=== PATIENT | female | born 1970 | race Caucasian/White ===

== ENCOUNTER 2018-02-05 10:54 | Inpatient (IN) ==
[2018-02-05] MEDS ORDERED: MethylPREDNISolone Sod Succinate Inj 125 MG/2 ML Vial IV.PUSH ONE (11:25)
[2018-02-05 12:18] LABS: Baso % (Auto) 0.1 % (0.0-2.0); Hematocrit 39.5 % (35.0-46.0); Hemoglobin 13.6 gm/dL (11.6-15.3); Lymph # (Auto) 0.5 th/mm3 (1.0-4.8); Mean Corpuscular HGB Conc 34.4 % (32.0-36.0); Mean Corpuscular Volume 87.2 fL (80.0-100.0); Mean Platelet Volume 8.3 fL (7.0-11.0); Mono # (Auto) 0.3 th/mm3 (0.0-0.9); Mono % (Auto) 5.1 % (0.0-8.0); Neut # (Auto) 4.5 th/mm3 (1.8-7.7); Neut % (Auto) 85.8 % (16.0-70.0); Platelet Count 119 th/mm3 (150-450); Red Blood Count 4.53 mil/mm3 (4.00-5.30); Red Cell Distribution Width 12.7 % (11.6-17.2); White Blood Count 5.2 th/mm3 (4.0-11.0)
--- NOTE | 2018-02-05 12:18 | ED ---
HPI General Chief Complaint: Shortness of Breath/Dyspnea Stated Complaint: Sob Time Seen by Provider: 02/05/18 11:24 Source: patient Mode of arrival: ambulatory Limitations: no limitations History of Present Illness Patient is a 47-year-old female presenting to the [facility] department for evaluation of shortness of breath. Patient states it started on Sunday, at that time she went to [facility] in [place] and was given a Z-Huseyin and steroids. She has been using her Ventolin inhaler without any improvement. She reports a dry cough, wheezing and gets significantly short of breath with any activity. Patient states she had fevers on Sunday and Sunday, she states they were over 100 degrees. She also reports a decreased appetite. Patient denies any nausea, vomiting, diarrhea, abdominal pain or chest pain. She does have a history of asthma, she recently started smoking again. Past medical history is significant for colon cancer, this is in remission. She is not currently on any radiation or chemotherapy. Symptom onset was gradual, symptoms are significant. Symptoms are exacerbated with any activity. Patient is from [place], she does not have a primary care provider in [facility]. She states she used to see a broadcast journalist in [place]. Patient denies any recent long travel, history of blood clots or hormone therapy. MD Complaint: Reports shortness of breath and cough Onset (ago): day(s) Context: Reports recent illness and occurred during exertion Severity: moderate Consistency/Duration: progressively worsening Relieving factors: nothing Exacerbating factors: exertion, movement, coughing and talking Known history of: Reports asthma Associated symptoms: Reports cough, wheezing and chest congestion Treatment prior to arrival: Reports bronchodilator Related Data Home oxygen amount: none Home Medications Medication Instructions Recorded Confirmed albuterol sulfate [Ventolin HFA] 2 puff INHALATION Q4-6H PRN 02/05/18 02/05/18 Previous Rx's Medication Instructions Recorded budesonide-formoterol [Symbicort] 2 puff INHALATION BID #1 inh 02/11/18 hydroxyzine HCl 50 mg PO Q8H PRN #60 tab 02/11/18 levofloxacin 750 mg PO DAILY #9 tab 02/11/18 prednisone See Label Instructions .ROUTE 02/11/18 .COMPLEX #30 tab Allergies Allergy/AdvReac Type Severity Reaction Status Date / Time No Known Allergies Allergy Verified 02/05/18 11:24 Review of Systems ROS: all other systems reviewed are negative PMFSH Medical History Medical History Asthma (Acute) Colon cancer (Acute) Surgical History Surgical History History of colostomy reversal (Acute) Hx of colectomy (Acute) Social History Social History Substance History: No History of Abuse Second Hand Smoke Exposure: Yes Smoking Status: Current some day smoker Tobacco Type: Cigarettes How Often Do You Have a Drink Containing Alcohol: Monthly or less Recent Travel in [facility] within the Last 8 Weeks: No Recent Out of Country Travel within the Last 8 Weeks: No Immunization History Tetanus Immunization: Unsure Exam Narrative Exam Narrative: GENERAL: Well-developed, well-nourished, comfortable appearing female, in no acute distress. SKIN: Focused skin assessment warm/dry. HEAD: Atraumatic. Normocephalic. EYES: Pupils equal and round. No scleral icterus. No injection or drainage. ENT: No nasal bleeding or discharge. Mucous membranes pink and moist. NECK: Trachea midline. No JVD. CARDIOVASCULAR: Tachycardic. No murmur appreciated. RESPIRATORY: Tachypneic, expiratory wheezes throughout with diminished lung sounds in bases. GASTROINTESTINAL: Abdomen soft, non-tender, nondistended. Hepatic and splenic margins not palpable. MUSCULOSKELETAL: No obvious deformities. No clubbing. No cyanosis. No edema. NEUROLOGICAL: Awake and alert. No obvious cranial nerve deficits. Motor grossly within normal limits. Normal speech. PSYCHIATRIC: Appropriate mood and affect; insight and judgment normal. Course Initial Documented Vital Signs Temperature 97.4 F L 02/05/18 11:00 Pulse Rate 116 H 02/05/18 11:00 Respiratory Rate 32 H 02/05/18 11:00 Blood Pressure 173/90 H 02/05/18 11:00 Pulse Oximetry 93 L 02/05/18 11:00 Last Documented Vital Signs Temperature 98.0 F 02/11/18 16:00 Pulse Rate 86 02/11/18 16:00 Respiratory Rate 18 02/11/18 16:00 Blood Pressure 130/71 02/11/18 16:00 Pulse Oximetry 93 L 02/11/18 16:00 Medical Decision Making ANTONY Attestation ANTONY supervised visit: Yes Attestation: Dr. Ingris Samuels, have reviewed the advance practice practitioner' s documentation and am in agreement, met with the patient face to face, made the diagnosis, and the medical decision making was done by me. The patient was initially evaluated by [maricel garcia]. Please see their complete history and physical MDM Narrative Medical decision making narrative: Patient is a 47-year-old female presenting with increasing shortness of breath for 1 week. Patient is tachycardic and hypoxic on arrival with an O2 sat at 90%. Patient was placed on O2 at 2 L. Labs and imaging ordered and pending as well as duo nebs, budesonide and Solu- Medrol. Chest x-ray showed possible fractured central line, recommended clinical correlation. Patient was negative for influenza. CBC with neutrophil count of 85.8, platelets 119. CT of the chest was obtained and showed scattered patchy infiltrates suggestive of inflammatory/infectious process most prominent in the right upper lobe posteriorly also has mediastinal lymph node measuring 15 mm, subcarinal lymph node measuring 2.3 cm as well as mild bullous changes. Patient was started on IV Levaquin and she just completed a course of azithromycin. She was given guaifenesin for symptom management. Patient continues to require oxygen to keep O2 sats greater than 92%. She came back from radiology with an O2 sat of 89% on room air. Discussed with Dr. Abdifatah London who accepted admission, admit orders placed. Medical Screen Exam Complete: Yes Emergency Medical Condition: Yes Differential Diagnosis Differential Diagnosis: Pneumonia versus asthma exacerbation versus metabolic abnormality versus cardiac arrhythmia versus less likely pulmonary embolism Lab Data Lab results reviewed: Yes I reviewed the patient's lab results. Result diagrams: 02/09/18 05:09 02/10/18 16:05 Lab Results 02/05/18 02/05/18 02/05/18 Range/Units 11:55 11:55 11:55 WBC 5.2 (4.0-11.0) th/mm3 RBC 4.53 (4.00-5.30) mil/mm3 Hgb 13.6 (11.6-15.3) gm/dL Hct 39.5 (35.0-46.0) % MCV 87.2 (80.0-100.0) fL MCH 30.0 (27.0-34.0) pg MCHC 34.4 (32.0-36.0) % RDW 12.7 (11.6-17.2) % Plt Count 119 L (150-450) th/mm3 MPV 8.3 (7.0-11.0) fL Neut % (Auto) 85.8 H (16.0-70.0) % Lymph % (Auto) 9.0 (9.0-44.0) % Coos % (Auto) 5.1 (0.0-8.0) % Eos % (Auto) 0.0 (0.0-4.0) % Baso % (Auto) 0.1 (0.0-2.0) % Neut # (Auto) 4.5 (1.8-7.7) th/mm3 Lymph # (Auto) 0.5 L (1.0-4.8) th/mm3 Coos # (Auto) 0.3 (0.0-0.9) th/mm3 Eos # (Auto) 0.0 (0.0-0.4) th/mm3 Baso # (Auto) 0.0 (0.0-0.2) th/mm3 WBC Differential . Differential Comment Auto diff final PT 10.0 (9.8-11.6) sec INR 1.0 Ratio APTT 29.2 (23.4-31.7) sec Sodium 137 (136-145) meq/L Potassium 3.8 (3.5-5.1) meq/L Chloride 103 (98-107) meq/L Carbon Dioxide 26.3 (21.0-32.0) meq/L Anion Gap 8 (5-15) meq/L BUN 9 (7-18) mg/dL Creatinine 0.61 (0.50-1.00) mg/dL Estimated GFR Greater than 89 (>89) mL/min Random Glucose 118 H (74-106) mg/dL Lactic Acid (0.4-2.0) mmol/L Calcium 7.9 L (8.5-10.1) mg/dL Magnesium 2.3 (1.5-2.5) mg/dL Total Bilirubin 0.4 (0.2-1.0) mg/dL AST 21 (15-37) U/L ALT 41 (10-53) U/L Alkaline Phosphatase 107 (45-117) U/L Total Creatine Kinase 49 (26-192) U/L Troponin I Less than 0.02 L (0.02-0.05) ng/mL Total Protein 6.7 (6.4-8.2) g/dL Albumin 3.1 L (3.4-5.0) g/dL Urine Color (Yellw/Straw) Urine Clarity (Clear) Urine pH (5.0-8.5) Ur Specific [place] (1.002-1.035) Urine Protein (Neg-Trace) mg/dL Urine Glucose (UA) (Negative) mg/dL Urine Ketones (Negative) mg/dL Urine Occult Blood (Negative) Urine Nitrate (Negative) Urine Bilirubin (Negative) Urine Urobilinogen (Less than 2) mg/dL Ur Leukocyte Esterase (Negative) Urine WBC (0-5) /hpf Ur Squamous Epith Cells (0-5) /hpf Urine Mucus (Occasional) /lpf Micro UA Comment Ur Microscopic Review Urine Culture Comments 02/05/18 02/06/18 02/06/18 Range/Units 11:55 05:47 05:47 WBC 4.7 (4.0-11.0) th/mm3 RBC 4.28 (4.00-5.30) mil/mm3 Hgb 13.0 (11.6-15.3) gm/dL Hct 37.7 (35.0-46.0) % MCV 87.9 (80.0-100.0) fL MCH 30.4 (27.0-34.0) pg MCHC 34.6 (32.0-36.0) % RDW 12.8 (11.6-17.2) % Plt Count 143 L (150-450) th/mm3 MPV 8.3 (7.0-11.0) fL Neut % (Auto) 78.1 H (16.0-70.0) % Lymph % (Auto) 15.2 (9.0-44.0) % Coos % (Auto) 6.5 (0.0-8.0) % Eos % (Auto) 0.0 (0.0-4.0) % Baso % (Auto) 0.2 (0.0-2.0) % Neut # (Auto) 3.7 (1.8-7.7) th/mm3 Lymph # (Auto) 0.7 L (1.0-4.8) th/mm3 Coos # (Auto) 0.3 (0.0-0.9) th/mm3 Eos # (Auto) 0.0 (0.0-0.4) th/mm3 Baso # (Auto) 0.0 (0.0-0.2) th/mm3 WBC Differential . Differential Comment Auto diff final PT (9.8-11.6) sec INR Ratio APTT (23.4-31.7) sec Sodium 135 L (136-145) meq/L Potassium 3.7 (3.5-5.1) meq/L Chloride 102 (98-107) meq/L Carbon Dioxide 25.5 (21.0-32.0) meq/L Anion Gap 8 (5-15) meq/L BUN 14 (7-18) mg/dL Creatinine 0.71 (0.50-1.00) mg/dL Estimated GFR 89 (>89) mL/min Random Glucose 172 H (74-106) mg/dL Lactic Acid 0.8 (0.4-2.0) mmol/L Calcium 8.4 L (8.5-10.1) mg/dL Magnesium (1.5-2.5) mg/dL Total Bilirubin (0.2-1.0) mg/dL AST (15-37) U/L ALT (10-53) U/L Alkaline Phosphatase (45-117) U/L Total Creatine Kinase (26-192) U/L Troponin I (0.02-0.05) ng/mL Total Protein (6.4-8.2) g/dL Albumin (3.4-5.0) g/dL Urine Color (Yellw/Straw) Urine Clarity (Clear) Urine pH (5.0-8.5) Ur Specific [place] (1.002-1.035) Urine Protein (Neg-Trace) mg/dL Urine Glucose (UA) (Negative) mg/dL Urine Ketones (Negative) mg/dL Urine Occult Blood (Negative) Urine Nitrate (Negative) Urine Bilirubin (Negative) Urine Urobilinogen (Less than 2) mg/dL Ur Leukocyte Esterase (Negative) Urine WBC (0-5) /hpf Ur Squamous Epith Cells (0-5) /hpf Urine Mucus (Occasional) /lpf Micro UA Comment Ur Microscopic Review Urine Culture Comments 02/06/18 02/09/18 02/09/18 Range/Units 14:05 05:09 05:09 WBC 5.1 (4.0-11.0) th/mm3 RBC 4.27 (4.00-5.30) mil/mm3 Hgb 13.0 (11.6-15.3) gm/dL Hct 36.5 (35.0-46.0) % MCV 85.6 (80.0-100.0) fL MCH 30.6 (27.0-34.0) pg MCHC 35.7 (32.0-36.0) % RDW 12.6 (11.6-17.2) % Plt Count 207 D (150-450) th/mm3 MPV 7.7 (7.0-11.0) fL Neut % (Auto) (16.0-70.0) % Lymph % (Auto) (9.0-44.0) % Coos % (Auto) (0.0-8.0) % Eos % (Auto) (0.0-4.0) % Baso % (Auto) (0.0-2.0) % Neut # (Auto) (1.8-7.7) th/mm3 Lymph # (Auto) (1.0-4.8) th/mm3 Coos # (Auto) (0.0-0.9) th/mm3 Eos # (Auto) (0.0-0.4) th/mm3 Baso # (Auto) (0.0-0.2) th/mm3 WBC Differential Differential Comment PT (9.8-11.6) sec INR Ratio APTT (23.4-31.7) sec Sodium 140 (136-145) meq/L Potassium 3.3 L (3.5-5.1) meq/L Chloride 104 (98-107) meq/L Carbon Dioxide 28.7 (21.0-32.0) meq/L Anion Gap 7 (5-15) meq/L BUN 13 (7-18) mg/dL Creatinine 0.63 (0.50-1.00) mg/dL Estimated GFR Greater than 89 (>89) mL/min Random Glucose 134 H (74-106) mg/dL Lactic Acid (0.4-2.0) mmol/L Calcium 7.6 L (8.5-10.1) mg/dL Magnesium (1.5-2.5) mg/dL Total Bilirubin (0.2-1.0) mg/dL AST (15-37) U/L ALT (10-53) U/L Alkaline Phosphatase (45-117) U/L Total Creatine Kinase (26-192) U/L Troponin I (0.02-0.05) ng/mL Total Protein (6.4-8.2) g/dL Albumin (3.4-5.0) g/dL Urine Color Yellow (Yellw/Straw) Urine Clarity Hazy H (Clear) Urine pH 7.0 (5.0-8.5) Ur Specific [place] 1.029 (1.002-1.035) Urine Protein 100 H (Neg-Trace) mg/dL Urine Glucose (UA) Negative (Negative) mg/dL Urine Ketones Negative (Negative) mg/dL Urine Occult Blood Negative (Negative) Urine Nitrate Negative (Negative) Urine Bilirubin Negative (Negative) Urine Urobilinogen Less than 2 (Less than 2) mg/dL Ur Leukocyte Esterase Negative (Negative) Urine WBC 1 (0-5) /hpf Ur Squamous Epith Cells 15 (0-5) /hpf Urine Mucus Few H (Occasional) /lpf Micro UA Comment Culture not ind Ur Microscopic Review Not Reportable Urine Culture Comments Culture not ind 02/10/18 Range/Units 16:05 WBC (4.0-11.0) th/mm3 RBC (4.00-5.30) mil/mm3 Hgb (11.6-15.3) gm/dL Hct (35.0-46.0) % MCV (80.0-100.0) fL MCH (27.0-34.0) pg MCHC (32.0-36.0) % RDW (11.6-17.2) % Plt Count (150-450) th/mm3 MPV (7.0-11.0) fL Neut % (Auto) (16.0-70.0) % Lymph % (Auto) (9.0-44.0) % Coos % (Auto) (0.0-8.0) % Eos % (Auto) (0.0-4.0) % Baso % (Auto) (0.0-2.0) % Neut # (Auto) (1.8-7.7) th/mm3 Lymph # (Auto) (1.0-4.8) th/mm3 Co[place] # (Auto) (0.0-0.9) th/mm3 Eos # (Auto) (0.0-0.4) th/mm3 Baso # (Auto) (0.0-0.2) th/mm3 WBC Differential Differential Comment PT (9.8-11.6) sec INR Ratio APTT (23.4-31.7) sec Sodium 139 (136-145) meq/L Potassium 4.1 D (3.5-5.1) meq/L Chloride 103 (98-107) meq/L Carbon Dioxide 27.0 (21.0-32.0) meq/L Anion Gap 9 (5-15) meq/L BUN 16 (7-18) mg/dL Creatinine 0.83 (0.50-1.00) mg/dL Estimated GFR 74 L (>89) mL/min Random Glucose 134 H (74-106) mg/dL Lactic Acid (0.4-2.0) mmol/L Calcium 7.9 L (8.5-10.1) mg/dL Magnesium (1.5-2.5) mg/dL Total Bilirubin 0.4 (0.2-1.0) mg/dL AST 11 L (15-37) U/L ALT 20 (10-53) U/L Alkaline Phosphatase 74 (45-117) U/L Total Creatine Kinase (26-192) U/L Troponin I (0.02-0.05) ng/mL Total Protein 6.1 L D (6.4-8.2) g/dL Albumin 3.0 L (3.4-5.0) g/dL Urine Color (Yellw/Straw) Urine Clarity (Clear) Urine pH (5.0-8.5) Ur Specific [place] (1.002-1.035) Urine Protein (Neg-Trace) mg/dL Urine Glucose (UA) (Negative) mg/dL Urine Ketones (Negative) mg/dL Urine Occult Blood (Negative) Urine Nitrate (Negative) Urine Bilirubin (Negative) Urine Urobilinogen (Less than 2) mg/dL Ur Leukocyte Esterase (Negative) Urine WBC (0-5) /hpf Ur Squamous Epith Cells (0-5) /hpf Urine Mucus (Occasional) /lpf Micro UA Comment Ur Microscopic Review Urine Culture Comments Imaging Data Radiologist's impression: Chest X-Ray 02/05/18 11:25 CONCLUSION: Tubular structure overlying the brachiocephalic vein and superior vena cava measuring approximately 6-7 cm which may represent a fractured central line. Clinical correlation is recommended. Unenhanced CT of the chest may be helpful for further evaluation of this possible foreign body. Chest CT 02/05/18 12:35 CONCLUSION: 1. Scattered patchy infiltrates are noted bilaterally and are nonspecific but suggestive of infectious/inflammatory process. Most prominent areas of nodular patchiness is noted within the right upper lobe posteriorly measuring 17 mm. Peripheral nodular patchy infiltrates are also noted within the right lower lobe. 2. Mildly prominent precarinal mediastinal lymph node measuring 15 mm as well as an enlarged subcarinal mediastinal lymph node measuring 2.3 cm. These are nonspecific. 3. Scattered underlying mild bullous emphysematous changes are noted bilaterally. 4. Mild hepatosplenomegaly. 5. Mild degenerative changes throughout the thoracic spine. WBC Scan Nuclear Medicine 02/08/18 00:00 CONCLUSION: Negative white blood cell scan. Chest X-Ray 02/09/18 00:00 CONCLUSION: No acute cardiac pulmonary process. Foreign body seen over the superior mediastinum. Discharge Plan Discharge Disposition Patient Disposition: ED Admit(ED Internal Use Only) Discharge Condition Condition: Stable Discharge Order Discharge Orders: Discharge Order (Routine); Ordered 02/11/18 Ordered By: Franck Phelps ED Use Only Admit Order (Routine); Ordered 02/05/18 Ordered By: Maricel Garcia Discharge Details Discharge Comment: DC once cleared and abx selected by ID Diagnosis: Community acquired pneumonia Physicians Team ED Provider: Ethan Amado ED Midlevel Provider: Maricel Garcia Primary Care Provider: Primary Care Jeane Berry Attending Provider: Franck Phelps Other Providers: Radha Simons Status ED Status: Left Department Discharge Information Discharge Date/Time: 02/05/18 16:45
[2018-02-05 12:28] LABS: Activated Partial Thrombo Time 29.2 sec (23.4-31.7)
--- NOTE | 2018-02-05 12:30 | XR ---
EXAM DATE: 02/05/2018 12:24 PM EST AGE/SEX: 47 years / Female INDICATIONS: Short of breath. Patient also complains of chest pain. CLINICAL DATA: This is the patient's initial encounter. Patient reports that signs and symptoms have been present for 1 week and indicates a pain score of 5/10. MEDICAL/SURGICAL HISTORY: . Pt. states she was given medicine recently for bronchitis. None. COMPARISON: No prior exams available for comparison. FINDINGS: There is a tubular structure overlying the brachiocephalic vein and superior vena cava measuring appr oximately 6-7 cm which may represent a fractured central line. Clinical correlation is recommended. U nenhanced CT of the chest may be helpful for further evaluation of this possible foreign body. The he art is normal. The pulmonary vascular pattern is normal. The lungs are clear. Chronic deformity of th e right proximal humerus is noted likely related to old trauma. CONCLUSION: Tubular structure overlying the brachiocephalic vein and superior vena cava measuring approximately 6 -7 cm which may represent a fractured central line. Clinical correlation is recommended. Unenhanced C T of the chest may be helpful for further evaluation of this possible foreign body. Electronically signed by: Guilherme Salas MD Board Certified Radiologist 02/05/2018 12:28 PM EST
[2018-02-05 12:41] LABS: Alanine Aminotransferase 41 U/L (10-53); Albumin 3.1 g/dL (3.4-5.0); Anion Gap 8 meq/L (5-15); Aspartate Aminotransferase 21 U/L (15-37); Blood Urea Nitrogen 9 mg/dL (7-18); Calcium 7.9 mg/dL (8.5-10.1); Carbon Dioxide 26.3 meq/L (21.0-32.0); Chloride 103 meq/L (98-107); Glomerular Filtration Rate Greater Than 89 mL/min (>89); Glucose,Random 118 mg/dL (74-106); Magnesium 2.3 mg/dL (1.5-2.5); Potassium 3.8 meq/L (3.5-5.1); Sodium 137 meq/L (136-145)
[2018-02-05 12:42] LABS: Alkaline Phosphatase 107 U/L (45-117); Total Protein 6.7 g/dL (6.4-8.2)
[2018-02-05 12:44] LABS: Creatine Kinase 49 U/L (26-192)
[2018-02-05] MEDS ORDERED: guaiFENesin/Codeine Syrup 200 MG/20 MG 10 ML UDC PO ONE (13:51)
--- NOTE | 2018-02-05 14:06 | CT ---
EXAM DATE: 02/05/2018 1:50 PM EST AGE/SEX: 47 years / Female INDICATIONS: Patient complains of dyspnea. Completed steroids and antibiotics with no relief CLINICAL DATA: This is the patient's initial encounter. Patient reports that signs and symptoms have been present for 1 week and indicates a pain score of 0/10. MEDICAL/SURGICAL HISTORY: Asthma. Carcinoma, colon. None. RADIATION DOSE: 9.4 CTDI (mGy) COMPARISON: No prior exams available for comparison. TECHNIQUE: Multiple contiguous axial images were obtained through the chest without contrast. Image s were obtained in suspended respiration using multiple row detector helical technique. Using automa jyotsna exposure control and adjustment of the mA and/or kV according to patient size, radiation dose was kept as low as reasonably achievable to obtain optimal diagnostic quality images. DICOM format imag e data is available electronically for review and comparison. FINDINGS: Lungs: Scattered patchy infiltrates are noted bilaterally and are nonspecific but suggestive of infe ctious/inflammatory process. Most prominent areas of nodular patchiness is noted within the right upp er lobe posteriorly measuring 17 mm. Peripheral nodular patchy infiltrates are also noted within the right lower lobe. Scattered underlying mild bullous emphysematous changes are noted bilaterally. Mediastinum: There is good visualization of the great vessels of the middle mediastinum. There is a mildly prominent precarinal mediastinal lymph node measuring 15 mm as well as an enlarged subcarinal mediastinal lymph node measuring 2.3 cm. These are nonspecific. Pleurae: No evidence of focal thickening or pleural effusion. Axillae: Unremarkable. Bony Structures: Mild degenerative changes are noted throughout the thoracic spine. Miscellaneous: The examination was extended to include the upper abdomen, and both adrenal glands ar e normal in size and configuration. Mild hepatosplenomegaly is noted. CONCLUSION: 1. Scattered patchy infiltrates are noted bilaterally and are nonspecific but suggestive of infectio us/inflammatory process. Most prominent areas of nodular patchiness is noted within the right upper l obe posteriorly measuring 17 mm. Peripheral nodular patchy infiltrates are also noted within the righ t lower lobe. 2. Mildly prominent precarinal mediastinal lymph node measuring 15 mm as well as an enlarged subcari nal mediastinal lymph node measuring 2.3 cm. These are nonspecific. 3. Scattered underlying mild bullous emphysematous changes are noted bilaterally. 4. Mild hepatosplenomegaly. 5. Mild degenerative changes throughout the thoracic spine. Electronically signed by: Guilherme Salas MD Board Certified Radiologist 02/05/2018 2:04 PM EST
[2018-02-05] MEDS ORDERED: Acetaminophen 325 MG Tablet PO PRN (15:27)
[2018-02-05] MEDS ORDERED: Bisacodyl 10 MG Supp RECTAL PRN (15:27)
[2018-02-05] MEDS: Enoxaparin Inj 40 MG/0.4 ML Syringe SQ SCH (16:35)
--- NOTE | 2018-02-05 17:12 | P.HPIM ---
History of Present Illness Primary Care Physician: No Primary Care Physician Chief Complaint: Shortness of breath History of Present Illness: 47-year-old female with a history of asthma, COPD, colon cancer with surgical resection of large intestine presents to the ER following 1 week of failed outpatient therapy for eczema exacerbation. She was seen 1 week ago and [place] [facility] and given a Z-Huseyin with steroids. She went home but failed to improve and over the last 2 days has become gradually worse with her shortness of breath, wheezing, dyspnea on exertion. She had fevers approximately 5 days ago but has not had fever since. She denies any nausea vomiting or diarrhea. She denies any dysuria or gynecological symptoms. She denies any chest pain, but does complain of pleuritic pain pain in her chest wall from labor of breathing so many days. Inpatient Certification Inpatient Certification: I certify that the inpatient services were ordered in accordance with Medicare regulations governing the order. This includes certification that hospital inpatient services are reasonable and necessary and in the case of services not specified as inpatient-only under 42 CFR 419.22(n), that they are appropriately provided as inpatient services in accordance to with the 2-midnight benchmark under 43 CFR 412.3(e) Estimated Total Length of Stay (Days): 4 Plans for Post Hospital Care: Home Review of Systems Review of Systems: all other systems reviewed are negative [facility] Medical History Medical History Asthma (Acute) Colon cancer (Acute) Surgical History Surgical History Hx of colectomy (Acute) Family History Family History Other Hypertension Social History Social History Substance History: No History of Abuse Second Hand Smoke Exposure: Yes Smoking Status: Current some day smoker Tobacco Type: Cigarettes How Often Do You Have a Drink Containing Alcohol: Monthly or less Recent Travel in [facility] within the Last 8 Weeks: No Recent Out of Country Travel within the Last 8 Weeks: No Immunization History Tetanus Immunization: Unsure Hx Influenza Vaccine This Season: Yes Medications and Allergies Allergies Allergy/AdvReac Type Severity Reaction Status Date / Time No Known Allergies Allergy Verified 02/05/18 11:24 Home Medications Medication Instructions Recorded Confirmed Type albuterol sulfate [Ventolin HFA] 2 puff INHALATION Q4-6H PRN 02/05/18 02/05/18 History Active Medications: Active Medications Acetaminophen (Tylenol) 650 mg PO Q4H PRN PRN Reason: Temp > 100.4 Al Hydroxide/Mg Hydroxide (Milk Of Magnesia Liq) 30 ml PO Q12H PRN PRN Reason: Mild Constipation Albuterol (Duoneb Neb (Laila)) 1 ampul NEB Q4HR NEB LAILA Last Admin: 02/05/18 15:59 Dose: 1 ampul Bisacodyl (Dulcolax Supp) 10 mg RECTAL DAILY PRN PRN Reason: SEVERE CONSITIPATION Budesonide (Pulmocort Respule Neb) 0.5 mg NEB Q12HR NEB LAILA Enoxaparin Sodium (Lovenox Inj) 40 mg SQ Q24H LAILA Last Admin: 02/05/18 16:35 Dose: 40 mg Levofloxacin/Dextrose (Levaquin 750 Mg Premix Inj) 150 mls @ 100 mls/hr IV.SIG Q24H LAILA Lactulose (Lactulose Liq) 30 ml PO DAILY PRN PRN Reason: SEVERE CONSITIPATION Methylprednisolone Sodium Succinate (Solumedrol Inj) 60 mg IV.PUSH Q8H LAILA Ondansetron HCl (Zofran Inj) 4 mg IV.PUSH Q6H PRN PRN Reason: NAUSEA OR VOMITING Sennosides (Senokot) 17.2 mg PO Q12H PRN PRN Reason: Moderate Constipation Sodium Chloride (Ns Flush) 2 ml IV.FLUSH BID LAILA Sodium Chloride (Ns Flush) 2 ml IV.FLUSH PRN PRN PRN Reason: FLUSH AFTER USING IV ACCESS Physical Exam Vital signs: Last Vital Signs Temp 98.2 F 02/05/18 16:38 Pulse 93 H 02/05/18 16:38 Resp 17 02/05/18 16:38 BP 137/57 L 02/05/18 16:38 Pulse Ox 90 L 02/05/18 16:38 Intake & Output 02/03/18 02/04/18 02/05/18 02/06/18 06:59 06:59 06:59 06:59 Intake Total 150 / 150 Balance 150 / 150 Weight 83.91 kg Narrative: GENERAL: AAOx3, no acute distress, adequate nutrition SKIN: Warm and dry, no rashes. HEAD: Atraumatic. Normocephalic. EYES: Pupils equal, round, reactive to light. No scleral icterus. No injection or drainage. ENT: No nasal bleeding or discharge. Moist mucous membranes. Nonerythematous oropharynx. NECK: Trachea midline. No JVD. Thyroid size within normal limits. CARDIOVASCULAR: Regular rate and rhythm. No murmur, no gallops, no rubs. RESPIRATORY: Pervasive wheezing with crackles in bilateral bases, worse on left and right. No accessory muscle use. GASTROINTESTINAL: Abdomen soft, non-tender, nondistended, normal active bowel sounds. Hepatic and splenic margins not palpable. MUSCULOSKELETAL: Extremities without clubbing or cyanosis. No obvious deformities. No edema. NEUROLOGICAL: Awake and alert. No obvious cranial nerve deficits. Motor grossly within normal limits. No focal deficits. Five out of 5 muscle strength in the arms and legs. Normal speech. PSYCHIATRIC: Appropriate mood and affect; insight and judgment normal. Results Labs CBC & Chem 7: 02/05/18 11:55 02/05/18 11:55 Imaging Impressions Chest X-Ray 02/05/18 11:25 CONCLUSION: Tubular structure overlying the brachiocephalic vein and superior vena cava measuring approximately 6-7 cm which may represent a fractured central line. Clinical correlation is recommended. Unenhanced CT of the chest may be helpful for further evaluation of this possible foreign body. Chest CT 02/05/18 12:35 CONCLUSION: 1. Scattered patchy infiltrates are noted bilaterally and are nonspecific but suggestive of infectious/inflammatory process. Most prominent areas of nodular patchiness is noted within the right upper lobe posteriorly measuring 17 mm. Peripheral nodular patchy infiltrates are also noted within the right lower lobe. 2. Mildly prominent precarinal mediastinal lymph node measuring 15 mm as well as an enlarged subcarinal mediastinal lymph node measuring 2.3 cm. These are nonspecific. 3. Scattered underlying mild bullous emphysematous changes are noted bilaterally. 4. Mild hepatosplenomegaly. 5. Mild degenerative changes throughout the thoracic spine. Caprini VTE Risk Assessment Caprini VTE Risk Assessment: Moderate/High Risk (score >= 2) Caprini Risk Assessment Model: Point Value = 1 Point Value = 2 Point Value = 3 Point Value = 5 Age 41-60 Minor surgery BMI > 25 kg/m2 Swollen legs Varicose veins or History of unexplained or recurrent spontaneous Oral contraceptives or hormone replacement Sepsis (< 1 month) Serious lung disease, including pneumonia (< 1 month) Abnormal pulmonary function Acute myocardial infarction Congestive heart failure (< 1 month) History of inflammatory bowel disease Medical patient at bed rest Age 61-74 Arthroscopic surgery Major open surgery (> 45 min) Laparoscopic surgery (> 45 min) Malignancy Confined to bed (> 72 hours) Immobilizing plaster cast Central venous access Age >= 75 History of VTE Family history of VTE Factor V Leiden Prothrombin [id number] Lupus anticoagulant Anticardiolipin antibodies Elevated serum homocysteine Heparin-induced thrombocytopenia Other congenital or acquired thrombophilia Stroke (< 1 month) Elective arthroplasty Hip, pelvis, or leg fracture Acute spinal cord injury (< 1 month) Prophylaxis Regimen: Total Risk Factor Score Risk Level Prophylaxis Regimen 0-1 Low Early ambulation 2 Moderate Order ONE of the following: *Sequential Compression Device (SCD) *Heparin 5000 units SQ BID 3-4 Higher Order ONE of the following medications: *Heparin 5000 units SQ TID *Enoxaparin/Lovenox 40 mg SQ daily (WT < 150 kg, CrCl > 30 mL/min) *Enoxaparin/Lovenox 30 mg SQ daily (WT < 150 kg, CrCl > 10-29 mL/min) *Enoxaparin/Lovenox 30 mg SQ BID (WT < 150 kg, CrCl > 30 mL/min) AND/OR *Sequential Compression Device (SCD) 5 or more Highest Order ONE of the following medications: *Heparin 5000 units SQ TID (Preferred with Epidurals) *Enoxaparin/Lovenox 40 mg SQ daily (WT < 150 kg, CrCl > 30 mL/min) *Enoxaparin/Lovenox 30 mg SQ daily (WT < 150 kg, CrCl > 10-29 mL/min) *Enoxaparin/Lovenox 30 mg SQ BID (WT < 150 kg, CrCl > 30 mL/min) AND *Sequential Compression Device (SCD) Assessment and Plan Plan Asthma/COPD exacerbation Patient admits to smoking for the last 30 years, she states she smokes approximately 1/4 packs/day Continue treatment started in the ER that includes Solu-Medrol, scheduled duo nebs, Levaquin Pneumonia Infiltrates evident on chest x-ray Continue Levaquin Tobacco abuse Patient counseled to quit, she has quit in the past She smokes 1/4 pack of cigarettes per day, we will offer NicoDerm for any withdrawal H/o colon cancer History of resection of her large intestine No current symptoms h/o liver lesion She has a lesion on her liver chronically, was told that a biopsy was not indicated Follow-up with primary doctors for guidance and outpatient monitoring DVT Prophylaxis Lovenox H&P: Quality VTE Deep Vein Thrombosis/Pulmonary Embolism Present on Admission: No
[2018-02-05] MEDS: Ibuprofen 400 MG Tablet PO SCH (17:27)
[2018-02-05] MEDS: MethylPREDNISolone Sod Succinate Inj 125 MG/2 ML Vial IV.PUSH SCH (20:44)
[2018-02-06] MEDS: Ibuprofen 400 MG Tablet PO SCH ×3 (01:03→17:06)
[2018-02-06] MEDS: MethylPREDNISolone Sod Succinate Inj 125 MG/2 ML Vial IV.PUSH SCH ×3 (05:19→21:43)
[2018-02-06 06:13] LABS: Baso % (Auto) 0.2 % (0.0-2.0); Hematocrit 37.7 % (35.0-46.0); Lymph # (Auto) 0.7 th/mm3 (1.0-4.8); Lymph % (Auto) 15.2 % (9.0-44.0); Mean Corpuscular HGB Conc 34.6 % (32.0-36.0); Mean Corpuscular Hemoglobin 30.4 pg (27.0-34.0); Mean Corpuscular Volume 87.9 fL (80.0-100.0); Mean Platelet Volume 8.3 fL (7.0-11.0); Mono # (Auto) 0.3 th/mm3 (0.0-0.9); Mono % (Auto) 6.5 % (0.0-8.0); Neut # (Auto) 3.7 th/mm3 (1.8-7.7); Neut % (Auto) 78.1 % (16.0-70.0); Platelet Count 143 th/mm3 (150-450); Red Blood Count 4.28 mil/mm3 (4.00-5.30); Red Cell Distribution Width 12.8 % (11.6-17.2); White Blood Count 4.7 th/mm3 (4.0-11.0)
[2018-02-06 06:41] LABS: Calcium 8.4 mg/dL (8.5-10.1); Carbon Dioxide 25.5 meq/L (21.0-32.0); Potassium 3.7 meq/L (3.5-5.1)
[2018-02-06] MEDS ORDERED: Butalbital/APAP/Caff 50/325/40 MG Tablet PO ONE (11:11)
[2018-02-06] MEDS: ALPRAZolam 0.25 MG Tablet PO PRN ×2 (12:33→18:31)
--- NOTE | 2018-02-06 12:41 | P.CONID ---
History of Present Illness Service: Infectious Disease Consult date: 02/06/18 Requesting Physician: El London Reason for Consult: Assist in evaluation and treatment of patient with gram- negative bacteremia Primary Care Provider: No Primary Care Physician Chief Complaint: Shortness of breath History of Present Illness: Patient seen and examined. Records reviewed. Patient is a 47-year-old female, admitted to the hospital for further evaluation of worsening shortness of breath. Patient has known history of asthma, but she stated that the last time she had asthma attack was about 2 years ago. She stated she is always had her inhalers available. Her problems started last week when she started experiencing shortness of breath which she describes as an asthma attack. She was also having some coughing. She tried using her inhalers but it did not offer any improvement. She was in [place] at that time and went to a nearby hospital and she was given Z-Huseyin and steroids. Chest x-ray was done and she was told that it was negative. Patient has been with a friend, and according to her they have been staying in a boat [place]. Her breathing was not improving, and there was concern from a friend that he could have mold and she is reacting to it so they left for a day, but she was not improving so she presented to the hospital and has been admitted. She apparently had fevers the first 2 days of being sick but none since. She has not had any nausea or vomiting. She experiences some chest pain when she breathes and when she coughs. She also has had some back pain. Currently has a headache, denies any photophobia or any neck pain. She has not been around any sick person or any animals or birds. Denies any urinary complaints. Since admission she has not been febrile. Her WBC is normal. Her chest x-ray was read as normal, and there was a tubular material seen in the brachiocephalic into the superior vena cava. CT of the chest showing evidence of bilateral pulmonary infiltrates. 2 blood cultures were done, and one is growing gram-negative radha in the aerobic bottle. Patient had multiple episodes of diarrhea yesterday after she got her antibiotics, but none today. Infectious disease consultation has been requested to assist with evaluation and treatment of patient with positive blood culture. Patient has been diagnosed to have colon cancer several years ago, and had surgical resection and a colostomy done. The colostomy was reversed over the last year. She received chemotherapy, and she had an [id number] in her left upper chest that was removed probably more than a year and a half ago. Review of Systems Constitutional: Reports headache(s), Denies chills, Denies fever(s), Denies night sweats Eyes: Denies discharge, Denies dry eyes Ears, Nose, Mouth, and Throat: Reports headache(s), Denies difficulty swallowing , Denies ear pain, Denies facial pain, Denies nasal congestion, Denies nasal discharge, Denies pain with swallowing, Denies sore throat Cardiovascular: Reports chest pain, Reports shortness of breath, Denies leg swelling Respiratory: Reports chest congestion, Reports cough, Reports pain on inspiration, Reports pain with cough, Reports shortness of breath, Reports wheezing Gastrointestinal: Reports loose stools, Denies abdominal pain, Denies nausea, Denies pain with swallowing, Denies vomiting Genitourinary: Denies difficulty starting urination, Denies difficulty urinating , Denies painful urination Musculoskeletal: Denies back pain Neurologic: Reports headache(s) PMFSH - History History Provided By: Patient - Medical History Medical History: Medical History (Last Reviewed 02/06/18 @ 12:36 by Radha Simons MD) Asthma Colon cancer - Surgical History Surgical History: Surgical History (Last Updated 02/06/18 @ 12:37 by Radha Simons MD) History of colostomy reversal Hx of colectomy - Family History Family History: Family History (Last Reviewed 02/05/18 @ 12:16 by EMANUEL Lao) Other Hypertension - Tobacco History Second Hand Smoke Exposure: Yes Tobacco Use In Past 30 Days: Yes Smoking Status: Current some day smoker Tobacco Type: Cigarettes - Alcohol History How Often Do You Have a Drink Containing Alcohol: Monthly or less - Substance Use History Substance History: No History of Abuse - Travel History Recent Travel in the [place] Within the Last 8 Weeks: No Recent Travel Out of the Country Within the Last 8 Weeks: No - Immunization History Tetanus Immunization: Unsure Hx Influenza Vaccine This Season: Yes Medications and Allergies Active Medications: Active Medications Acetaminophen (Tylenol) 650 mg PO Q4H PRN PRN Reason: Temp > 100.4 Hydrocodone Bitart/Acetaminophen ([place] 5/325) 1 tab PO Q6H PRN PRN Reason: Acute Pain Last Admin: 02/06/18 06:47 Dose: 1 tab Al Hydroxide/Mg Hydroxide (Milk Of Magnesia Liq) 30 ml PO Q12H PRN PRN Reason: Mild Constipation Albuterol (Duoneb Neb (Laila)) 1 ampul NEB Q4HR NEB [facility] Last Admin: 02/06/18 12:02 Dose: 1 ampul Alprazolam (Xanax) 0.25 mg PO Q6H PRN PRN Reason: ANXIETY Bisacodyl (Dulcolax Supp) 10 mg RECTAL DAILY PRN PRN Reason: SEVERE CONSITIPATION Budesonide (Pulmocort Respule Neb) 0.5 mg NEB Q12HR NEB [facility] Last Admin: 02/06/18 12:03 Dose: 0.5 mg Enoxaparin Sodium (Lovenox Inj) 40 mg SQ Q24H [facility] Last Admin: 02/05/18 16:35 Dose: 40 mg Levofloxacin/Dextrose (Levaquin 750 Mg Premix Inj) 150 mls @ 100 mls/hr IV.SIG Q24H LAILA Ceftazidime 1,000 mg/ Sodium (Chloride) 100 mls @ 200 mls/hr IV.SIG Q8H LAILA Ibuprofen (Motrin) 400 mg PO Q8H [facility] Last Admin: 02/06/18 09:01 Dose: 400 mg Lactulose (Lactulose Liq) 30 ml PO DAILY PRN PRN Reason: SEVERE CONSITIPATION Methylprednisolone Sodium Succinate (Solumedrol Inj) 60 mg IV.PUSH Q8H [facility] Last Admin: 02/06/18 12:11 Dose: 60 mg Ondansetron HCl (Zofran Inj) 4 mg IV.PUSH Q6H PRN PRN Reason: NAUSEA OR VOMITING Sennosides (Senokot) 17.2 mg PO Q12H PRN PRN Reason: Moderate Constipation Sodium Chloride (Ns Flush) 2 ml IV.FLUSH BID [facility] Last Admin: 02/06/18 09:02 Dose: 2 ml Sodium Chloride (Ns Flush) 2 ml IV.FLUSH PRN PRN PRN Reason: FLUSH AFTER USING IV ACCESS Allergies Allergy/AdvReac Type Severity Reaction Status Date / Time No Known Allergies Allergy Verified 02/05/18 11:24 Home Medications Medication Instructions Recorded Confirmed Type albuterol sulfate [Ventolin HFA] 2 puff INHALATION Q4-6H PRN 02/05/18 02/05/18 History Exam Vital signs: Vital Signs 02/05/18 15:39 02/05/18 15:40 02/05/18 16:00 Temperature Pulse Rate 90 86 74 Respiratory Rate 20 18 Blood Pressure 119/59 L Pulse Oximetry 92 L 02/05/18 16:02 02/05/18 16:24 02/05/18 16:38 Temperature 98.2 F Pulse Rate 93 H Respiratory Rate 17 Blood Pressure 137/57 L Pulse Oximetry 97 96 90 L 02/05/18 20:00 02/05/18 20:11 02/05/18 20:58 Temperature 97.8 F Pulse Rate 88 85 Respiratory Rate 18 Blood Pressure 108/58 L Pulse Oximetry 90 L 100 02/05/18 23:47 02/05/18 23:58 02/06/18 03:24 Temperature 97.7 F Pulse Rate 84 76 62 Respiratory Rate 20 20 12 Blood Pressure 115/57 L Pulse Oximetry 97 93 L 02/06/18 08:00 02/06/18 12:00 02/06/18 12:29 Temperature 97.9 F 97.7 F Pulse Rate 79 87 79 Respiratory Rate 14 16 20 Blood Pressure 115/59 L 121/58 L Pulse Oximetry 95 91 L 02/06/18 12:31 Temperature Pulse Rate Respiratory Rate Blood Pressure Pulse Oximetry 96 Intake & Output 02/05/18 02/06/18 02/06/18 18:59 06:59 18:59 Intake Total 390 / 390 1380 / 1380 Balance 390 / 390 1380 / 1380 Weight 83.91 kg 83.9 kg Intake: IV 150 / 150 Levaquin 750 mg Premix Inj 150 150 / 150 ML @ 100 mls/hr IV.SIG STAT STA Rx#:[id number] Oral 240 / 240 1380 / 1380 Other: # Voids 2 Weight On Admission 83.91 kg Narrative: Physical examination GENERAL: Patient is a well-nourished, well-developed female, awake and alert, in mild respiratory distress SKIN: Warm and dry. No generalized rash, no ecchymoses and no evidence of embolic lesions. HEAD: Atraumatic. Normocephalic. No temporal wasting, or tenderness. EYES: Friendly conjunctiva. No petechia or hemorrhage. Pupils equal, round and reactive to light. Extraocular movements full and intact. No scleral icterus. No injection or drainage. EARS, NOSE AND THROAT: Nose without bleeding or purulent nasal discharge. No sinus tenderness. Mucous membranes pink and moist. No oral lesions noted. No exudate. No oral thrush. NECK: Trachea midline. Supple and not tender, no meningeal signs. No nuchal rigidity CARDIOVASCULAR: Regular rate and rhythm. No murmurs, rubs or gallops heard RESPIRATORY: Poor air movement ABDOMEN: Soft, non-tender, nondistended. Bowel sounds present and normoactive. No guarding. No rebound. No organomegaly. EXTREMITIES: No clubbing, cyanosis, or edema. No joint effusion, has good ROM. No calf tenderness. Well perfused and warm. NEUROLOGICAL: Awake and alert. Cranial nerves grossly intact. Motor grossly within normal limits. PSYCHIATRIC: Normal affect, calm and cooperative. LINE: No evidence of infection Results - Labs CBC & Chem 7: 02/06/18 05:47 02/06/18 05:47 Labs: Laboratory Results - last 24 hr 02/05/18 02/05/18 02/06/18 11:55 11:55 05:47 WBC 4.7 RBC 4.28 Hgb 13.0 Hct 37.7 MCV 87.9 MCH 30.4 MCHC 34.6 RDW 12.8 Plt Count 143 L MPV 8.3 Neut % (Auto) 78.1 H Lymph % (Auto) 15.2 [place] % (Auto) 6.5 Eos % (Auto) 0.0 Baso % (Auto) 0.2 Neut # (Auto) 3.7 Lymph # (Auto) 0.7 L [place] # (Auto) 0.3 Eos # (Auto) 0.0 Baso # (Auto) 0.0 WBC Differential . Differential Comment Auto diff final Sodium 137 Potassium 3.8 Chloride 103 Carbon Dioxide 26.3 Anion Gap 8 BUN 9 Creatinine 0.61 Estimated GFR Greater than 89 Random Glucose 118 H Lactic Acid 0.8 Calcium 7.9 L Magnesium 2.3 Total Bilirubin 0.4 AST 21 ALT 41 Alkaline Phosphatase 107 Total Creatine Kinase 49 Troponin I Less than 0.02 L Total Protein 6.7 Albumin 3.1 L 02/06/18 05:47 WBC RBC Hgb Hct MCV MCH MCHC RDW Plt Count MPV Neut % (Auto) Lymph % (Auto) [place] % (Auto) Eos % (Auto) Baso % (Auto) Neut # (Auto) Lymph # (Auto) [place] # (Auto) Eos # (Auto) Baso # (Auto) WBC Differential Differential Comment Sodium 135 L Potassium 3.7 Chloride 102 Carbon Dioxide 25.5 Anion Gap 8 BUN 14 Creatinine 0.71 Estimated GFR 89 Random Glucose 172 H Lactic Acid Calcium 8.4 L Magnesium Total Bilirubin AST ALT Alkaline Phosphatase Total Creatine Kinase Troponin I Total Protein Albumin - Imaging Impressions Chest CT 02/05/18 12:35 CONCLUSION: 1. Scattered patchy infiltrates are noted bilaterally and are nonspecific but suggestive of infectious/inflammatory process. Most prominent areas of nodular patchiness is noted within the right upper lobe posteriorly measuring 17 mm. Peripheral nodular patchy infiltrates are also noted within the right lower lobe. 2. Mildly prominent precarinal mediastinal lymph node measuring 15 mm as well as an enlarged subcarinal mediastinal lymph node measuring 2.3 cm. These are nonspecific. 3. Scattered underlying mild bullous emphysematous changes are noted bilaterally. 4. Mild hepatosplenomegaly. 5. Mild degenerative changes throughout the thoracic spine. Chest X-Ray 02/05/18 11:25 CONCLUSION: Tubular structure overlying the brachiocephalic vein and superior vena cava measuring approximately 6-7 cm which may represent a fractured central line. Clinical correlation is recommended. Unenhanced CT of the chest may be helpful for further evaluation of this possible foreign body. Assessment and Plan - Plan Impression GNR bacteremia, source? - has bilateral pulmonary infiltrates on CT - no urinary complaints Retained catheter from her port removed July 2016 - ?seeding Hx colon CA, S/P surgery and chemoRx Recommendation Repeat 2 BC today Urine legionella and pneumo AG Sputum C/S D/W Dr Drake London - IR to try and retrieve the fractured line UA and C/S Continue Levaquin and Fortaz until C/S available Follow C/S and adjust Abx Rx asthma exacerbation Monitor progress I will follow along with you Thank you for this consultation Explained plan to the patient D/W Dr Drake London (HEPAS) D/W RN
[2018-02-06 14:29] LABS: Bilirubin,Urine Negative (Negative); Clarity,Urine Hazy (Clear); Color,Urine Yellow (Yellw/Straw); Glucose,Urine (UA) Negative (Negative); Leukocyte Esterase,Urine Negative (Negative); Mucus,Urine Few /lpf (Occasional); Nitrite,Urine Negative (Negative); Specific Gravity,Urine 1.029 (1.002-1.035); Squamous Epithelial Cell,Urine 15 /hpf (0-5)
--- NOTE | 2018-02-06 14:59 | P.PNIM ---
Subjective Interval history: 47-year-old female admitted for asthma exacerbation and pneumonia. Her blood culture returned with gram-negative rods yesterday and her antibiotic coverage was increased. Incidental finding on chest x-ray reveals a tube in her left upper chest that is likely a fractured piece of her port which was removed 1.5 years ago. Her only complaints today are headache and increased anxiety, both likely related to side effect of steroid for treatment of her asthma. Physical Exam Vital signs: Last Vital Signs Temp 97.7 F 02/06/18 12:00 Pulse 79 02/06/18 12:29 Resp 20 02/06/18 12:29 BP 121/58 L 02/06/18 12:00 Pulse Ox 96 02/06/18 12:31 Intake & Output 02/04/18 02/05/18 02/06/18 02/07/18 06:59 06:59 06:59 06:59 Intake Total 1770 / 1770 100 / 100 Balance 1770 / 1770 100 / 100 Weight 83.9 kg Narrative: GENERAL: AAOx3, anxious SKIN: Warm and dry. No rashes HEAD: Atruamtic, normocephalic. EYES: No scleral icterus. No injection or drainage. ENT: Moist mucous membranes, patent nares, no erythema of oropharynx. NECK: Supple, trachea midline. No JVD or lymphadenopathy. Normal thyroid. CARDIOVASCULAR: Regular rate and rhythm. No murmurs, gallops, or rubs. RESPIRATORY: Mild scattered wheezing with diminished left base, crackles. No accessory muscle use. GASTROINTESTINAL: Abdomen soft, non-tender, nondistended, normal active bowel sounds MUSCULOSKELETAL: No cyanosis, or edema. NEURO: CN II-XII grossly intact, no focal deficits, no slurring of speech Results Labs CBC & Chem 7: 02/06/18 05:47 02/06/18 05:47 Labs: Microbiology 02/05/18 11:55 Blood - Peripheral Aerobic Blood Culture - Preliminary Acinetobacter species 02/05/18 11:55 Blood - Peripheral Anaerobic Blood Culture - Preliminary No growth in 1 day 02/05/18 11:58 Blood - Peripheral Aerobic Blood Culture - Preliminary No growth in 1 day 02/05/18 11:58 Blood - Peripheral Anaerobic Blood Culture - Preliminary No growth in 1 day 02/05/18 11:45 Nasal Wash Influenza Types A,B Antigen - Final Negative for FLU A and B antigen Infection due to influenza A or B cannot be ruled out since the antigen present in the sample may be below the detection limit of the test. Imaging Imaging: Impressions Chest CT 02/05/18 12:35 CONCLUSION: 1. Scattered patchy infiltrates are noted bilaterally and are nonspecific but suggestive of infectious/inflammatory process. Most prominent areas of nodular patchiness is noted within the right upper lobe posteriorly measuring 17 mm. Peripheral nodular patchy infiltrates are also noted within the right lower lobe. 2. Mildly prominent precarinal mediastinal lymph node measuring 15 mm as well as an enlarged subcarinal mediastinal lymph node measuring 2.3 cm. These are nonspecific. 3. Scattered underlying mild bullous emphysematous changes are noted bilaterally. 4. Mild hepatosplenomegaly. 5. Mild degenerative changes throughout the thoracic spine. Assessment and Plan Plan Asthma/COPD exacerbation Patient admits to smoking for the last 30 years, she states she smokes approximately 1/4 packs/day Continue treatment started in the ER that includes Solu-Medrol, scheduled duo nebs, Levaquin Pneumonia Infiltrates evident on chest x-ray Continue Levaquin Bacteremia Gram-negative rods are present and initial blood culture result Patient IV coverage was expanded to ceftazidime added to her Levaquin Adjust antibiotic selections based on culture results Appreciate infectious disease consult Foreign body in brachiocephalic vein Described as a 6-7 cm possible fracture of central line Patient had central line removed 1.5 years ago Given presence of gram-negative rods and a foreign body in the vessel would be high risk Interventional radiology is consulted to assist with removal Tobacco abuse Patient counseled to quit, she has quit in the past She smokes 1/4 pack of cigarettes per day, we will offer NicoDerm for any withdrawal H/o colon cancer History of resection of her large intestine No current symptoms h/o liver lesion She has a lesion on her liver chronically, was told that a biopsy was not indicated Follow-up with primary doctors for guidance and outpatient monitoring DVT Prophylaxis Lovenox Progress Note: Quality VTE Deep Vein Thrombosis/Pulmonary Embolism Present on Admission: No
--- NOTE | 2018-02-06 15:40 | ECG ---
Date Performed: 02/05/2018 Time Performed: 11:16:35 PTAGE: 47 years EKG: SINUS TACHYCARDIA POSSIBLE LEFT ATRIAL ENLARGEMENT ABNORMAL RHYTHM ECG NO PREVIOUS TRACING DOCTOR: Naga Cook Interpretating Date/Time 02/06/2018 15:39:45
[2018-02-06] MEDS: Enoxaparin Inj 40 MG/0.4 ML Syringe SQ SCH (16:53)
[2018-02-06] MEDS: Butalbital/APAP/Caff 50/325/40 MG Tablet PO PRN (21:41)
[2018-02-07] MEDS: Ibuprofen 400 MG Tablet PO SCH ×3 (01:56→18:16)
[2018-02-07] MEDS: ALPRAZolam 0.25 MG Tablet PO PRN ×3 (01:56→13:30)
[2018-02-07] MEDS: MethylPREDNISolone Sod Succinate Inj 125 MG/2 ML Vial IV.PUSH SCH ×3 (06:04→21:08)
[2018-02-07] MEDS: Butalbital/APAP/Caff 50/325/40 MG Tablet PO PRN ×3 (08:02→22:05)
--- NOTE | 2018-02-07 12:57 | P.PNIM ---
Subjective Interval history: 47-year-old female appears less anxious today, she states her headache was resolved with Fioricet but has now returned. She understands she has that 6 cm portion of her broken port line still in her brachiocephalic vein that needs to be removed. Her wheezing and shortness of breath persist, but given the side effects of steroids she is not interested in bumping up that dose and would rather give it more time. Physical Exam Vital signs: Last Vital Signs Temp 98.2 F 02/07/18 12:00 Pulse 78 02/07/18 12:00 Resp 19 02/07/18 12:00 BP 124/60 02/07/18 12:00 Pulse Ox 92 L 02/07/18 12:00 Intake & Output 02/05/18 02/06/18 02/07/18 02/08/18 06:59 06:59 06:59 06:59 Intake Total 1770 / 1770 1150 / 1150 Output Total 150 / 150 Balance 1770 / 1770 1000 / 1000 Weight 83.9 kg 83.9 kg Narrative: GENERAL: AAOx3, no acute distress SKIN: Warm and dry. No rashes HEAD: Atruamtic, normocephalic. EYES: No scleral icterus. No injection or drainage. ENT: Moist mucous membranes, patent nares, no erythema of oropharynx. NECK: Supple, trachea midline. No JVD or lymphadenopathy. Normal thyroid. CARDIOVASCULAR: Regular rate and rhythm. No murmurs, gallops, or rubs. RESPIRATORY: Mild scattered wheezing with diminished left base, crackles. No accessory muscle use. GASTROINTESTINAL: Abdomen soft, non-tender, nondistended, normal active bowel sounds MUSCULOSKELETAL: No cyanosis, or edema. NEURO: CN II-XII grossly intact, no focal deficits, no slurring of speech Results Labs CBC & Chem 7: 02/06/18 05:47 02/06/18 05:47 Labs: Microbiology 02/06/18 13:59 Blood - Peripheral Aerobic Blood Culture - Preliminary No growth in 1 day 02/06/18 13:59 Blood - Peripheral Anaerobic Blood Culture - Preliminary No growth in 1 day 02/06/18 14:14 Blood - Peripheral Aerobic Blood Culture - Preliminary No growth in 1 day 02/06/18 14:14 Blood - Peripheral Anaerobic Blood Culture - Preliminary No growth in 1 day 02/05/18 11:55 Blood - Peripheral Aerobic Blood Culture - Preliminary Acinetobacter species 02/05/18 11:55 Blood - Peripheral Anaerobic Blood Culture - Preliminary No growth in 2 days 02/05/18 11:58 Blood - Peripheral Aerobic Blood Culture - Preliminary gram negative rods 02/05/18 11:58 Blood - Peripheral Anaerobic Blood Culture - Preliminary No growth in 2 days 02/06/18 14:05 Urine - Clean Catch Urine Streptococcus pneumoniae Antigen ( M - Final Presumptive negative for streptococcus pneumoniae antigen, suggesting no current or recent infection. Infection due to Streptococcus pneumoniae cannot be ruled out since the antigen present in the sample may be below the detection limit of the test. 02/06/18 14:05 Urine - Clean Catch Urine Legionella Antigen - Final Presumptive negative for Legionella pneumophila serogroup 1 antigen in urine, suggesting no recent or recurrent infection. Infection due to Legionella cannot be ruled out since other serogroups and species may cause disease, antigen may not be present in urine in early infection, and the level of antigen present in the urine may be below the detection limit of the test. Assessment and Plan Plan Asthma/COPD exacerbation Patient admits to smoking for the last 30 years, she states she smokes approximately 1/4 packs/day Continue treatment started in the ER that includes Solu-Medrol, scheduled duo nebs, Levaquin Minimal improvement, patient not interested in increasing steroids due to side effects, will follow clinically Pneumonia Infiltrates evident on chest x-ray Continue Levaquin Headache Responsive to Fioricet Continue Fioricet as needed Bacteremia Gram-negative rods are present and initial blood culture result Patient IV coverage was expanded to ceftazidime added to her Levaquin Adjust antibiotic selections based on culture results Appreciate infectious disease consult Foreign body in brachiocephalic vein Described as a 6-7 cm possible fracture of central line Patient had central line removed 1.5 years ago Given presence of gram-negative rods and a foreign body in the vessel would be high risk Interventional radiology is consulted to assist with removal Tobacco abuse Patient counseled to quit, she has quit in the past She smokes 1/4 pack of cigarettes per day, we will offer NicoDerm for any withdrawal H/o colon cancer History of resection of her large intestine No current symptoms h/o liver lesion She has a lesion on her liver chronically, was told that a biopsy was not indicated Follow-up with primary doctors for guidance and outpatient monitoring DVT Prophylaxis Lovenox Progress Note: Quality VTE Deep Vein Thrombosis/Pulmonary Embolism Present on Admission: No
--- NOTE | 2018-02-07 13:24 | P.PNID ---
Subjective Remarks: Patient is a 47-year-old female, admitted to the hospital for further evaluation of worsening shortness of breath. Patient has known history of asthma, but she stated that the last time she had asthma attack was about 2 years ago. She stated she is always had her inhalers available. Her problems started last week when she started experiencing shortness of breath which she describes as an asthma attack. She was also having some coughing. She tried using her inhalers but it did not offer any improvement. She was in [place] at that time and went to a nearby hospital and she was given Z-Huseyin and steroids. Chest x-ray was done and she was told that it was negative. Patient has been with a friend, and according to her they have been staying in a boat house. Her breathing was not improving, and there was concern from a friend that he could have mold and she is reacting to it so they left for a day, but she was not improving so she presented to the hospital and has been admitted. She apparently had fevers the first 2 days of being sick but none since. She has not had any nausea or vomiting. She experiences some chest pain when she breathes and when she coughs. She also has had some back pain. Currently has a headache, denies any photophobia or any neck pain. She has not been around any sick person or any animals or birds. Denies any urinary complaints. Since admission she has not been febrile. Her WBC is normal. Her chest x-ray was read as normal, and there was a tubular material seen in the brachiocephalic into the superior vena cava. CT of the chest showing evidence of bilateral pulmonary infiltrates. 2 blood cultures were done, and one is growing gram-negative radha in the aerobic bottle. Patient had multiple episodes of diarrhea yesterday after she got her antibiotics, but none today. Infectious disease consultation has been requested to assist with evaluation and treatment of patient with positive blood culture. Got more detailed history from patient. Did not get very good Hx yesterday bec of her DURAND and SOB. She was diagnosed with colon CA when she was 32 years old, and had received chemo and she thinks last one was around 2007. She was referred to a gynecology oncology and decided to have TAHBASO - no cancer seen. Has not had a good fup for her colon CA. In 2017 she had lap kira, done electively, was told she had a "mass" in her liver, but told too risky to biopsy. She also had her port removed during same hospital stay which was same day surgery. Had fup with surgeon and basically not had any medical check since. She denies any hx of severe infection requiring hospitalization. Has had recurrent boils in her medial thigh, treated with oral Abx. Had seen an ID specialist and no other specific Rx recommended Has been staying in a boathouse, and she said it was filthy when she came first and she cleaned it well. Her friend has several kids that would stay there too and many dogs. None of them have been sick Notes reviewed Temps ok Still with SOB Has moist non-productive cough BC with ACinetobacter Antibiotics: Levaquin Fortaz Past Medical History: Asthma Colon cancer History of colostomy reversal Hx of colectomy, with colostomy, then reversal Cholecystectomy Port placement and removal Allergies/Adverse Reactions: Allergies No Known Allergies Allergy (Verified 02/05/18 11:24) Objective Vital Signs 02/06/18 15:13 02/06/18 15:30 02/06/18 19:47 Temperature 98.0 F 97.6 F Pulse Rate 74 76 80 Respiratory Rate 16 16 18 Blood Pressure 120/60 124/67 Pulse Oximetry 97 94 L 02/06/18 20:31 02/06/18 23:41 02/06/18 23:57 Temperature 98.2 F Pulse Rate 84 71 Respiratory Rate 20 19 18 Blood Pressure 122/59 L Pulse Oximetry 92 L 95 02/07/18 00:29 02/07/18 08:00 02/07/18 09:06 Temperature 97.8 F Pulse Rate 73 75 100 H Respiratory Rate 17 19 22 Blood Pressure 135/80 Pulse Oximetry 100 94 L 02/07/18 11:34 02/07/18 12:00 Temperature 98.2 F Pulse Rate 81 78 Respiratory Rate 16 19 Blood Pressure 124/60 Pulse Oximetry 92 L Intake & Output 02/06/18 02/07/18 02/07/18 18:59 06:59 18:59 Intake Total 250 / 250 900 / 900 Output Total 150 / 150 Balance 250 / 250 750 / 750 Weight 83.9 kg Intake: IV 250 / 250 200 / 200 Levaquin 750 mg Premix Inj 150 150 / 150 ML @ 100 mls/hr IV.SIG Q24H [facility] Rx#:[id number] Tazicef Inj 1,000 MG In NS Inj 100 / 100 200 / 200 100 ML @ 200 mls/hr IV.SIG Q8H [facility] Rx#:[id number] Oral 700 / 700 Output: Urine 150 / 150 Other: # Voids 2 02/06/18 13:59 Blood - Peripheral Aerobic Blood Culture - Preliminary No growth in 1 day 02/06/18 13:59 Blood - Peripheral Anaerobic Blood Culture - Preliminary No growth in 1 day 02/06/18 14:14 Blood - Peripheral Aerobic Blood Culture - Preliminary No growth in 1 day 02/06/18 14:14 Blood - Peripheral Anaerobic Blood Culture - Preliminary No growth in 1 day 02/05/18 11:55 Blood - Peripheral Aerobic Blood Culture - Preliminary Acinetobacter species 02/05/18 11:55 Blood - Peripheral Anaerobic Blood Culture - Preliminary No growth in 2 days 02/05/18 11:58 Blood - Peripheral Aerobic Blood Culture - Preliminary gram negative rods 02/05/18 11:58 Blood - Peripheral Anaerobic Blood Culture - Preliminary No growth in 2 days 02/06/18 14:05 Urine - Clean Catch Urine Streptococcus pneumoniae Antigen ( M - Final Presumptive negative for streptococcus pneumoniae antigen, suggesting no current or recent infection. Infection due to Streptococcus pneumoniae cannot be ruled out since the antigen present in the sample may be below the detection limit of the test. 02/06/18 14:05 Urine - Clean Catch Urine Legionella Antigen - Final Presumptive negative for Legionella pneumophila serogroup 1 antigen in urine, suggesting no recent or recurrent infection. Infection due to Legionella cannot be ruled out since other serogroups and species may cause disease, antigen may not be present in urine in early infection, and the level of antigen present in the urine may be below the detection limit of the test. 02/05/18 11:45 Nasal Wash Influenza Types A,B Antigen - Final Negative for FLU A and B antigen Infection due to influenza A or B cannot be ruled out since the antigen present in the sample may be below the detection limit of the test. Lab - Hematology Results 02/06/18 05:47 WBC 4.7 RBC 4.28 Hgb 13.0 Hct 37.7 MCV 87.9 MCH 30.4 MCHC 34.6 RDW 12.8 Plt Count 143 L MPV 8.3 Neut % (Auto) 78.1 H Lymph % (Auto) 15.2 Allen % (Auto) 6.5 Eos % (Auto) 0.0 Baso % (Auto) 0.2 Neut # (Auto) 3.7 Lymph # (Auto) 0.7 L Allen # (Auto) 0.3 Eos # (Auto) 0.0 Baso # (Auto) 0.0 WBC Differential . Differential Comment Auto diff final Lab - Chemistry Results 02/06/18 05:47 Sodium 135 L Potassium 3.7 Chloride 102 Carbon Dioxide 25.5 Anion Gap 8 BUN 14 Creatinine 0.71 Estimated GFR 89 Random Glucose 172 H Calcium 8.4 L Imaging: ITS Impressions Chest X-Ray 02/05/18 11:25 CONCLUSION: Tubular structure overlying the brachiocephalic vein and superior vena cava measuring approximately 6-7 cm which may represent a fractured central line. Clinical correlation is recommended. Unenhanced CT of the chest may be helpful for further evaluation of this possible foreign body. Chest CT 02/05/18 12:35 CONCLUSION: 1. Scattered patchy infiltrates are noted bilaterally and are nonspecific but suggestive of infectious/inflammatory process. Most prominent areas of nodular patchiness is noted within the right upper lobe posteriorly measuring 17 mm. Peripheral nodular patchy infiltrates are also noted within the right lower lobe. 2. Mildly prominent precarinal mediastinal lymph node measuring 15 mm as well as an enlarged subcarinal mediastinal lymph node measuring 2.3 cm. These are nonspecific. 3. Scattered underlying mild bullous emphysematous changes are noted bilaterally. 4. Mild hepatosplenomegaly. 5. Mild degenerative changes throughout the thoracic spine. Physical Exam: GENERAL: awake and alert, in mild respiratory distress SKIN: Cool and dry. No generalized rash, no ecchymoses and no evidence of embolic lesions. HEAD: Atraumatic. Normocephalic. No temporal wasting, or tenderness. EYES: [place] conjunctiva. No petechia or hemorrhage. Pupils equal, round and reactive to light. Extraocular movements full and intact. No scleral icterus. No injection or drainage. EARS, NOSE AND THROAT: Nose without bleeding or purulent nasal discharge. No sinus tenderness. Mucous membranes pink and moist. No oral lesions noted. No exudate. No oral thrush. NECK: Trachea midline. Supple and not tender, no meningeal signs. No nuchal rigidity CARDIOVASCULAR: Regular rate and rhythm. No murmurs, rubs or gallops heard RESPIRATORY: Poor air movement, scattered wheezing ABDOMEN: Soft, non-tender, nondistended. Bowel sounds present and normoactive. No guarding. No rebound. No organomegaly. EXTREMITIES: No clubbing, cyanosis, or edema. No joint effusion, has good ROM. No calf tenderness. Well perfused and warm. NEUROLOGICAL: Grossly non-focal PSYCHIATRIC: Normal affect, calm and cooperative. LINE: No evidence of infection Assessment and Plan - Plan Impression Acinetobacter bacteremia, source? - has bilateral pulmonary infiltrates on CT - no urinary complaints - has retained cath, very worrisome Retained catheter from her port removed July 2016 - ?seeding Hx colon CA, S/P surgery and chemoRx Recommendation Repeat BC Echo Continue Levaquin and Fortaz until C/S available Follow C/S and adjust Abx Rx asthma exacerbation Will consult IR for removal of retained cath, send tip for C/A Monitor progress Explained plan to the patient
--- NOTE | 2018-02-07 15:11 | ECHRPT ---
Indication: Acute and subacute endocarditis, unspecified CONCLUSIONS Normal left ventricular size and wall thickness. The left ventricular systolic function is normal wi th an estimated ejection fraction in the range of 60-65%. Left ventricular diastolic function parameters a re normal. Trace aortic valve regurgitation. No valvular vegetations visualized. May consider transesophageal echocardiogram if clinically indica jyotsna. BP: / HR: Rhythm: Sinus MEASUREMENTS (Male / Female) Normal Values Technical Quality:Fair 2D ECHO LV Diastolic Diameter PLAX 4.0 cm 4.2 - 5.9 / 3.9 - 5.3 cm LV Systolic Diameter PLAX 2.9 cm IVS Diastolic Thickness 1.1 cm 0.6 - 1.0 / 0.6 - 0.9 cm LVPW Diastolic Thickness 1.1 cm 0.6 - 1.0 / 0.6 - 0.9 cm LV Relative Wall Thickness 0.5 LVOT Diameter 2.0 cm M-MODE Aortic Root Diameter MM 2.2 cm LA Systolic Diameter MM 3.5 cm LA Ao Ratio MM 1.6 AV Cusp Separation MM 2.1 cm DOPPLER AV Peak Velocity 166.0 cm/s AV Peak Gradient 11.0 mmHg AI Peak Velocity 250.0 cm/s AI Peak Gradient 25.0 mmHg AI Pressure Half Time 671.5 ms LVOT Peak Velocity 127.0 cm/s LVOT Peak Gradient 6.5 mmHg AV Area Cont Eq pk 2.4 cm Mitral E Point Velocity 80.5 cm/s Mitral A Point Velocity 87.4 cm/s Mitral E to A Ratio 0.9 LV E' Lateral Velocity 12.4 cm/s Mitral E to LV E' Lateral Ratio 6.5 LV E' Septal Velocity 8.0 cm/s Mitral E to LV E' Septal Ratio 10.1 PV Peak Velocity 126.0 cm/s PV Peak Gradient 6.4 mmHg FINDINGS LEFT VENTRICLE Normal left ventricular size and wall thickness. The left ventricular systolic function is normal wi th an estimated ejection fraction in the range of 60-65%. Left ventricular diastolic function parameters a re normal. No regional wall motion abnormalities are present. RIGHT VENTRICLE Normal right ventricular size and systolic function. LEFT ATRIUM The left atrial size is normal. RIGHT ATRIUM The right atrial size is normal. ATRIAL SEPTUM Normal atrial septal thickness without atrial level shunting by limited color doppler interrogation. AORTA The aortic root and proximal ascending aorta are normal in size on limited imaging. MITRAL VALVE Structurally normal mitral valve. No mitral valve stenosis or regurgitation. AORTIC VALVE The aortic valve is not well visualized. Trace aortic valve regurgitation. TRICUSPID VALVE Structurally normal tricuspid valve. No tricuspid valve stenosis or regurgitation. PULMONARY VALVE The pulmonary valve is not well visualized. VESSELS The inferior vena cava is normal in size. PERICARDIUM No pericardial effusion. Jhon White (Electronically Signed) Final Date:07 February 2018 15:10
[2018-02-07] MEDS: Enoxaparin Inj 40 MG/0.4 ML Syringe SQ SCH (16:30)
[2018-02-08] MEDS: Ibuprofen 400 MG Tablet PO SCH ×3 (01:43→18:25)
[2018-02-08] MEDS: ALPRAZolam 0.25 MG Tablet PO PRN ×4 (01:43→22:08)
[2018-02-08] MEDS: MethylPREDNISolone Sod Succinate Inj 125 MG/2 ML Vial IV.PUSH SCH ×4 (04:57→20:23)
[2018-02-08] MEDS: Butalbital/APAP/Caff 50/325/40 MG Tablet PO PRN ×3 (04:59→18:24)
[2018-02-08] MEDS: Pantoprazole Sodium 20 MG DR Tablet PO SCH ×2 (10:39→20:22)
--- NOTE | 2018-02-08 10:53 | P.PNID ---
Subjective Remarks: Patient is a 47-year-old female, admitted to the hospital for further evaluation of worsening shortness of breath. Patient has known history of asthma, but she stated that the last time she had asthma attack was about 2 years ago. She stated she is always had her inhalers available. Her problems started last week when she started experiencing shortness of breath which she describes as an asthma attack. She was also having some coughing. She tried using her inhalers but it did not offer any improvement. She was in [place] at that time and went to a nearby hospital and she was given Z-Huseyin and steroids. Chest x-ray was done and she was told that it was negative. Patient has been with a friend, and according to her they have been staying in a boat house. Her breathing was not improving, and there was concern from a friend that he could have mold and she is reacting to it so they left for a day, but she was not improving so she presented to the hospital and has been admitted. She apparently had fevers the first 2 days of being sick but none since. She has not had any nausea or vomiting. She experiences some chest pain when she breathes and when she coughs. She also has had some back pain. Currently has a headache, denies any photophobia or any neck pain. She has not been around any sick person or any animals or birds. Denies any urinary complaints. Since admission she has not been febrile. Her WBC is normal. Her chest x-ray was read as normal, and there was a tubular material seen in the brachiocephalic into the superior vena cava. CT of the chest showing evidence of bilateral pulmonary infiltrates. 2 blood cultures were done, and one is growing gram-negative radha in the aerobic bottle. Patient had multiple episodes of diarrhea yesterday after she got her antibiotics, but none today. Infectious disease consultation has been requested to assist with evaluation and treatment of patient with positive blood culture. Got more detailed history from patient. Did not get very good Hx yesterday bec of her DURAND and SOB. She was diagnosed with colon CA when she was 32 years old, and had received chemo and she thinks last one was around 2007. She was referred to a gynecology oncology and decided to have TAHBASO - no cancer seen. Has not had a good fup for her colon CA. In 2017 she had lap kira, done electively, was told she had a "mass" in her liver, but told too risky to biopsy. She also had her port removed during same hospital stay which was same day surgery. Had fup with surgeon and basically not had any medical check since. She denies any hx of severe infection requiring hospitalization. Has had recurrent boils in her medial thigh, treated with oral Abx. Had seen an ID specialist and no other specific Rx recommended Has been staying in a boathouse, and she said it was filthy when she came first and she cleaned it well. Her friend has several kids that would stay there too and many dogs. None of them have been sick Notes reviewed Temps ok Still with SOB, a little better Spoke with IR yesterday - very high risk to remove retained cath since it has been there >10 years (2003) ?got Acinetobacter from boat house that she said was filthy and she cleaned the place Has moist non-productive cough BC with ACinetobacter, preliminary on Lynda Antibiotics: Levaquin Fortaz Past Medical History: Asthma Colon cancer History of colostomy reversal Hx of colectomy, with colostomy, then reversal Cholecystectomy Port placement and removal Allergies/Adverse Reactions: Allergies No Known Allergies Allergy (Verified 02/05/18 11:24) Objective Vital Signs 02/07/18 11:34 02/07/18 12:00 02/07/18 15:40 Temperature 98.2 F Pulse Rate 81 78 96 H Respiratory Rate 16 19 16 Blood Pressure 124/60 Pulse Oximetry 92 L 02/07/18 16:00 02/07/18 20:00 02/07/18 20:20 Temperature 98.7 F 98.2 F Pulse Rate 78 80 80 Respiratory Rate 19 18 17 Blood Pressure 134/68 113/66 Pulse Oximetry 94 L 95 02/07/18 23:00 02/07/18 23:06 02/08/18 00:00 Temperature 97.5 F L Pulse Rate 82 75 Respiratory Rate 18 17 18 Blood Pressure 121/62 Pulse Oximetry 97 02/08/18 03:10 02/08/18 08:00 Temperature 97.8 F Pulse Rate 76 96 H Respiratory Rate 18 18 Blood Pressure 141/79 H Pulse Oximetry 92 L Intake & Output 02/07/18 02/08/18 02/08/18 18:59 06:59 18:59 Intake Total 1550 / 1550 1160 / 1160 Balance 1550 / 1550 1160 / 1160 Weight 82.9 kg Intake: IV 150 / 150 200 / 200 Levaquin 750 mg Premix Inj 150 150 / 150 ML @ 100 mls/hr IV.SIG Q24H INES Rx#:[id number] Tazicef Inj 1,000 MG In NS Inj 200 / 200 100 ML @ 200 mls/hr IV.SIG Q8H INES Rx#:[id number] Oral 1400 / 1400 960 / 960 Other: # Voids 4 2 # Bowel Movements 0 02/07/18 16:21 Blood - Peripheral Aerobic Blood Culture - Pending 02/07/18 16:21 Blood - Peripheral Anaerobic Blood Culture - Pending 02/06/18 13:59 Blood - Peripheral Aerobic Blood Culture - Preliminary No growth in 1 day 02/06/18 13:59 Blood - Peripheral Anaerobic Blood Culture - Preliminary No growth in 1 day 02/06/18 14:14 Blood - Peripheral Aerobic Blood Culture - Preliminary No growth in 1 day 02/06/18 14:14 Blood - Peripheral Anaerobic Blood Culture - Preliminary No growth in 1 day 02/05/18 11:55 Blood - Peripheral Aerobic Blood Culture - Preliminary Acinetobacter species 02/05/18 11:55 Blood - Peripheral Anaerobic Blood Culture - Preliminary No growth in 2 days 02/05/18 11:58 Blood - Peripheral Aerobic Blood Culture - Preliminary gram negative rods 02/05/18 11:58 Blood - Peripheral Anaerobic Blood Culture - Preliminary No growth in 2 days 02/06/18 14:05 Urine - Clean Catch Urine Streptococcus pneumoniae Antigen ( M - Final Presumptive negative for streptococcus pneumoniae antigen, suggesting no current or recent infection. Infection due to Streptococcus pneumoniae cannot be ruled out since the antigen present in the sample may be below the detection limit of the test. 02/06/18 14:05 Urine - Clean Catch Urine Legionella Antigen - Final Presumptive negative for Legionella pneumophila serogroup 1 antigen in urine, suggesting no recent or recurrent infection. Infection due to Legionella cannot be ruled out since other serogroups and species may cause disease, antigen may not be present in urine in early infection, and the level of antigen present in the urine may be below the detection limit of the test. 02/05/18 11:45 Nasal Wash Influenza Types A,B Antigen - Final Negative for FLU A and B antigen Infection due to influenza A or B cannot be ruled out since the antigen present in the sample may be below the detection limit of the test. Imaging: ITS Impressions Chest X-Ray 02/05/18 11:25 CONCLUSION: Tubular structure overlying the brachiocephalic vein and superior vena cava measuring approximately 6-7 cm which may represent a fractured central line. Clinical correlation is recommended. Unenhanced CT of the chest may be helpful for further evaluation of this possible foreign body. Chest CT 02/05/18 12:35 CONCLUSION: 1. Scattered patchy infiltrates are noted bilaterally and are nonspecific but suggestive of infectious/inflammatory process. Most prominent areas of nodular patchiness is noted within the right upper lobe posteriorly measuring 17 mm. Peripheral nodular patchy infiltrates are also noted within the right lower lobe. 2. Mildly prominent precarinal mediastinal lymph node measuring 15 mm as well as an enlarged subcarinal mediastinal lymph node measuring 2.3 cm. These are nonspecific. 3. Scattered underlying mild bullous emphysematous changes are noted bilaterally. 4. Mild hepatosplenomegaly. 5. Mild degenerative changes throughout the thoracic spine. Physical Exam: GENERAL: awake and alert, not in distress SKIN: Cool and dry. No generalized rash HEAD: Atraumatic. Normocephalic. No temporal wasting, or tenderness. EYES: [place] conjunctiva. No petechia or hemorrhage. No scleral icterus. No injection or drainage. EARS, NOSE AND THROAT: Nose without bleeding or purulent nasal discharge. No sinus tenderness. Mucous membranes pink and moist. No oral lesions noted. No exudate. No oral thrush. NECK: Trachea midline. Supple and not tender, no meningeal signs. No nuchal rigidity CARDIOVASCULAR: Regular rate and rhythm. No murmurs, rubs or gallops heard RESPIRATORY: Poor air movement, still with tended. Bowel sounds present and normoactive. No guarding. No rebound. No organomegaly. EXTREMITIES: No clubbing, cyanosis, or edema. No joint effusion, has good ROM. No calf tenderness. NEUROLOGICAL: Grossly non-focal PSYCHIATRIC: Normal affect, calm and cooperative. LINE: No evidence of infection Assessment and Plan - Plan Impression Acinetobacter bacteremia, source? Possubly due to PNA - has retained cath, ?a concern, it has been there >10 years Retained catheter from her port removed July 2016 - port placed >10 years ago - ?seeding Hx colon CA, S/P surgery and chemoRx Recommendation Follow repeat BC Continue Levaquin and Fortaz until C/S available Follow C/S and adjust Abx Rx asthma exacerbation WBC scan to look for other causes Explained plan to the patient D/W Dr [place] I will off Feb 09 Other ID MD covering in my absence
--- NOTE | 2018-02-08 12:29 | P.PNIM ---
Subjective Interval history: 47-year-old female admitted for asthma/COPD exacerbation secondary to pneumonia. She had an incidental finding of a retained portion of her port line has been present for at least 1.5 years. Request to interventional radiology was made, but there is high risk for removal and have advised keeping it in. Given her positive blood cultures there is some risk for seeding. She has an understanding of this, her chief complaint today however is her breathing. Her steroids will be increased. Physical Exam Vital signs: Last Vital Signs Temp 98.6 F 02/08/18 12:00 Pulse 77 02/08/18 12:00 Resp 17 02/08/18 12:00 BP 123/59 L 02/08/18 12:00 Pulse Ox 98 02/08/18 12:00 Intake & Output 02/06/18 02/07/18 02/08/18 02/09/18 06:59 06:59 06:59 06:59 Intake Total 1770 / 1770 1150 / 1150 2710 / 2710 Output Total 150 / 150 Balance 1770 / 1770 1000 / 1000 2710 / 2710 Weight 83.9 kg 83.9 kg 82.9 kg Narrative: GENERAL: AAOx3, no acute distress SKIN: Warm and dry. No rashes HEAD: Atruamtic, normocephalic. EYES: No scleral icterus. No injection or drainage. ENT: Moist mucous membranes, patent nares, no erythema of oropharynx. NECK: Supple, trachea midline. No JVD or lymphadenopathy. Normal thyroid. CARDIOVASCULAR: Regular rate and rhythm. No murmurs, gallops, or rubs. RESPIRATORY: Moderate scattered wheezing with diminished left base, improved aeration, crackles. No accessory muscle use. GASTROINTESTINAL: Abdomen soft, non-tender, nondistended, normal active bowel sounds MUSCULOSKELETAL: No cyanosis, or edema. NEURO: CN II-XII grossly intact, no focal deficits, no slurring of speech Results Labs CBC & Chem 7: 02/06/18 05:47 02/06/18 05:47 Labs: Microbiology 02/07/18 16:21 Blood - Peripheral Aerobic Blood Culture - Preliminary No growth in 1 day 02/07/18 16:21 Blood - Peripheral Anaerobic Blood Culture - Preliminary No growth in 1 day 02/06/18 13:59 Blood - Peripheral Aerobic Blood Culture - Preliminary No growth in 2 days 02/06/18 13:59 Blood - Peripheral Anaerobic Blood Culture - Preliminary No growth in 2 days 02/06/18 14:14 Blood - Peripheral Aerobic Blood Culture - Preliminary No growth in 2 days 02/06/18 14:14 Blood - Peripheral Anaerobic Blood Culture - Preliminary No growth in 2 days 02/05/18 11:55 Blood - Peripheral Aerobic Blood Culture - Preliminary Acinetobacter species 02/05/18 11:55 Blood - Peripheral Anaerobic Blood Culture - Preliminary No growth in 3 days 02/05/18 11:58 Blood - Peripheral Aerobic Blood Culture - Preliminary gram negative rods 02/05/18 11:58 Blood - Peripheral Anaerobic Blood Culture - Preliminary No growth in 3 days Assessment and Plan Plan Asthma/COPD exacerbation Patient admits to smoking for the last 30 years, she states she smokes approximately 1/4 packs/day Continue treatment with scheduled duo nebs and Levaquin Increase Solu-Medrol to 60 mg 4 times daily Follow clinically Pneumonia Infiltrates evident on CT chest Continue Levaquin Headache Responsive to Fioricet Continue Fioricet as needed Bacteremia Gram-negative rods are present and initial blood culture result Patient IV coverage was expanded to ceftazidime added to her Levaquin Adjust antibiotic selections based on culture results Appreciate infectious disease consult Foreign body in brachiocephalic vein Described as a 6-7 cm possible fracture of central line Patient had central line removed 1.5 years ago Interventional radiology has determined that removing the segment of line would be too high risk Appreciate interventional radiology consult Tobacco abuse Patient counseled to quit, she has quit in the past She smokes 1/4 pack of cigarettes per day, we will offer NicoDerm for any withdrawal H/o colon cancer History of resection of her large intestine No current symptoms h/o liver lesion She has a lesion on her liver chronically, was told that a biopsy was not indicated Follow-up with primary doctors for guidance and outpatient monitoring DVT Prophylaxis Lovenox Progress Note: Quality VTE Deep Vein Thrombosis/Pulmonary Embolism Present on Admission: No
[2018-02-08] MEDS: Enoxaparin Inj 40 MG/0.4 ML Syringe SQ SCH (16:10)
[2018-02-09] MEDS: Ibuprofen 400 MG Tablet PO SCH ×3 (02:08→18:15)
[2018-02-09] MEDS: ALPRAZolam 0.25 MG Tablet PO PRN ×2 (04:09→16:27)
[2018-02-09 06:36] LABS: Hematocrit 36.5 % (35.0-46.0); Mean Corpuscular HGB Conc 35.7 % (32.0-36.0); Mean Corpuscular Hemoglobin 30.6 pg (27.0-34.0); Mean Corpuscular Volume 85.6 fL (80.0-100.0); Mean Platelet Volume 7.7 fL (7.0-11.0); Platelet Count 207 th/mm3 (150-450); Red Blood Count 4.27 mil/mm3 (4.00-5.30); Red Cell Distribution Width 12.6 % (11.6-17.2); White Blood Count 5.1 th/mm3 (4.0-11.0)
[2018-02-09 06:59] LABS: Anion Gap 7 meq/L (5-15); Blood Urea Nitrogen 13 mg/dL (7-18); Calcium 7.6 mg/dL (8.5-10.1); Carbon Dioxide 28.7 meq/L (21.0-32.0); Chloride 104 meq/L (98-107); Glomerular Filtration Rate Greater Than 89 mL/min (>89); Glucose,Random 134 mg/dL (74-106); Potassium 3.3 meq/L (3.5-5.1); Sodium 140 meq/L (136-145)
[2018-02-09] MEDS: MethylPREDNISolone Sod Succinate Inj 125 MG/2 ML Vial IV.PUSH SCH ×4 (08:38→20:20)
[2018-02-09] MEDS: Butalbital/APAP/Caff 50/325/40 MG Tablet PO PRN ×3 (08:39→22:41)
[2018-02-09] MEDS: Pantoprazole Sodium 20 MG DR Tablet PO SCH ×2 (08:40→20:20)
--- NOTE | 2018-02-09 09:32 | NM ---
EXAM DATE: 02/09/2018 9:28 AM EST AGE/SEX: 47 years / Female INDICATIONS: Infection retained portion of Infusaport. CLINICAL DATA: This is the patient's initial encounter. Patient reports that signs and symptoms have been present for 2 days and indicates a pain score of 3/10. MEDICAL/SURGICAL HISTORY: Carcinoma, colon. Asthma. Colon resection. [place] [facility] [place]. . DOSE: 20.1 mCi Tc99m Ceretec labeled white blood cells IV IMAGING TIMES: 30 min 3 hr , 24 hrs TECHNIQUE: Following the in vitro labeling of autologous white cells and reinjection, whole body sca n was performed at specified times. FINDINGS: There is normal distribution of the white blood cells. No abnormal areas of activity are seen. No inc reased activity is seen over the chest. CONCLUSION: Negative white blood cell scan. Electronically signed by: Stephon Heredia MD Board Certified Radiologist 02/09/2018 9:31 AM EST
--- NOTE | 2018-02-09 15:09 | XR ---
EXAM DATE: 02/09/2018 3:03 PM EST AGE/SEX: 47 years / Female INDICATIONS: . Short of breath. CLINICAL DATA: This is the patient's subsequent encounter. Patient reports that signs and symptoms h ave been present for 1 day and indicates a pain score of 0/10. MEDICAL/SURGICAL HISTORY: None. None. COMPARISON: [facility] – [place], [place]ST 1V SINGLE AP, 02/05/2018. . FINDINGS: The heart size is normal. The lungs are grossly clear. No effusion is seen. Again noted is a foreign body seen in the superior mediastinal region presumably related to a prior catheter. Clips are seen i n the right upper quadrant. There is chronic deformity at the right humerus. CONCLUSION: No acute cardiac pulmonary process. Foreign body seen over the superior mediastinum. Electronically signed by: Stephon Heredia MD Board Certified Radiologist 02/09/2018 3:08 PM EST
[2018-02-09] MEDS: Enoxaparin Inj 40 MG/0.4 ML Syringe SQ SCH (16:27)
--- NOTE | 2018-02-09 17:08 | P.PNIM ---
Subjective Interval history: Nursing denies any acute changes overnight. Patient herself however says this morning that she feels worse than yesterday, says that she feels more labored in her breathing. Denies any nausea or vomiting. Physical Exam Vital signs: Vital Signs 02/08/18 19:19 02/08/18 20:00 02/09/18 00:00 Temperature 98.0 F 98.3 F Pulse Rate 77 82 85 Respiratory Rate 16 18 18 Blood Pressure 141/77 H 133/67 Pulse Oximetry 93 L 92 L 94 L 02/09/18 04:36 02/09/18 07:54 02/09/18 08:00 Temperature 97.2 F L Pulse Rate 81 93 H Respiratory Rate 22 16 17 Blood Pressure 163/70 H Pulse Oximetry 94 L 92 L 02/09/18 08:36 02/09/18 10:50 Temperature Pulse Rate 84 Respiratory Rate 18 Blood Pressure Pulse Oximetry 95 Intake & Output 02/08/18 02/09/18 02/09/18 18:59 06:59 18:59 Intake Total 100 / 100 200 / 200 400 / 400 Balance 100 / 100 200 / 200 400 / 400 Weight 85 kg Intake: IV 100 / 100 200 / 200 400 / 400 Levaquin 750 mg Premix Inj 150 300 / 300 ML @ 100 mls/hr IV.SIG Q24H INES Rx#:[id number] Tazicef Inj 2,000 MG In NS Inj 100 / 100 200 / 200 100 / 100 100 ML @ 200 mls/hr IV.SIG Q8H INES Rx#:[id number] Other: # Voids 3 Date of Last Bowel Movement 02/09/18 Narrative: Diffuse end expiratory wheezing is heard in bilateral lung vincent, does appear to be unlabored Heart sounds regular rate and rhythm, no murmurs lying in bed, alert, no acute distress Results - Labs CBC & Chem 7: 02/09/18 05:09 02/09/18 05:09 Laboratory Results - last 24 hr 02/09/18 02/09/18 05:09 05:09 WBC 5.1 RBC 4.27 Hgb 13.0 Hct 36.5 MCV 85.6 MCH 30.6 MCHC 35.7 RDW 12.6 Plt Count 207 D MPV 7.7 Sodium 140 Potassium 3.3 L Chloride 104 Carbon Dioxide 28.7 Anion Gap 7 BUN 13 Creatinine 0.63 Estimated GFR Greater than 89 Random Glucose 134 H Calcium 7.6 L Microbiology 02/07/18 16:21 Blood - Peripheral Aerobic Blood Culture - Preliminary No growth in 2 days 02/07/18 16:21 Blood - Peripheral Anaerobic Blood Culture - Preliminary No growth in 2 days 02/06/18 13:59 Blood - Peripheral Aerobic Blood Culture - Preliminary No growth in 3 days 02/06/18 13:59 Blood - Peripheral Anaerobic Blood Culture - Preliminary No growth in 3 days 02/06/18 14:14 Blood - Peripheral Aerobic Blood Culture - Preliminary No growth in 3 days 02/06/18 14:14 Blood - Peripheral Anaerobic Blood Culture - Preliminary No growth in 3 days 02/05/18 11:55 Blood - Peripheral Aerobic Blood Culture - Final Acinetobacter lwoffii 02/05/18 11:55 Blood - Peripheral Anaerobic Blood Culture - Preliminary No growth in 4 days 02/05/18 11:58 Blood - Peripheral Aerobic Blood Culture - Final Acinetobacter lwoffii 02/05/18 11:58 Blood - Peripheral Anaerobic Blood Culture - Preliminary No growth in 4 days - Imaging Impressions WBC Scan Nuclear Medicine 02/08/18 00:00 CONCLUSION: Negative white blood cell scan. Chest X-Ray 02/09/18 00:00 CONCLUSION: No acute cardiac pulmonary process. Foreign body seen over the superior mediastinum. Assessment and Plan - Plan 47-year-old white female who was admitted sepsis with shortness of breath. Found to be bacteremic with Acinetobacter, possible notion that this may have been something to do with her residual chemotherapy port fragment left in her brachiocephalic vein. Repeat blood cultures have been negative, infectious disease has been following along. Asthma/COPD exacerbation Improving, can down titrate steroids Headache Responsive to Fioricet Continue Fioricet as needed Bacteremia Pneumonia Repeat chest x-ray today is clear -Acinetobacter in blood, with Repeat cultures negative On Fortaz and Levaquin per ID Foreign body in brachiocephalic vein Described as a 6-7 cm possible fracture of central line Patient had central line removed 1.5 years ago Interventional radiology has determined that removing the segment of line would be too high risk Appreciate interventional radiology consult Anxiety I will de-escalate the patient's Ativan frequency, and make hydroxyzine her primary as needed anxiety medication for now H/o colon cancer History of resection of her large intestine No current symptoms h/o liver lesion She has a lesion on her liver chronically, was told that a biopsy was not indicated Follow-up with primary doctors for guidance and outpatient monitoring DVT Prophylaxis Lovenox
[2018-02-09] MEDS ORDERED: ALPRAZolam 0.25 MG Tablet PO PRN (17:31)
[2018-02-10] MEDS: Ibuprofen 400 MG Tablet PO SCH ×3 (03:10→18:35)
[2018-02-10] MEDS: Butalbital/APAP/Caff 50/325/40 MG Tablet PO PRN ×2 (04:33→19:33)
[2018-02-10] MEDS: MethylPREDNISolone Sod Succinate Inj 125 MG/2 ML Vial IV.PUSH SCH ×3 (09:02→20:36)
[2018-02-10] MEDS: Pantoprazole Sodium 20 MG DR Tablet PO SCH ×2 (09:02→20:36)
[2018-02-10] MEDS: Lidocaine 5% Patch T-DERMAL SCH (15:11)
[2018-02-10] MEDS: Enoxaparin Inj 40 MG/0.4 ML Syringe SQ SCH (16:25)
[2018-02-10] MEDS ORDERED: Bisacodyl 10 MG Supp RECTAL ONE (16:53)
--- NOTE | 2018-02-10 17:00 | P.PNIM ---
Subjective Interval history: Nursing reports that the patient is still asking for pain medication. Anxious. Nurse reports that her wheezing is much better today than yesterday. When I talked to the patient, she says she feels worse today but she attributes it to being anxious and worked up on the steroids as opposed to a true intrinsic respiratory process. Says otherwise she feels fine. She reported having some nausea and self-limited reflux which she is attributing to not having a bowel movement for a number of days. Is that the oral laxatives are not helping. Physical Exam Vital signs: Vital Signs 02/09/18 20:00 02/09/18 22:33 02/10/18 00:00 Temperature 98.0 F 98.1 F Pulse Rate 101 H 70 73 Respiratory Rate 18 16 20 Blood Pressure 147/66 H 121/73 Pulse Oximetry 95 93 L 92 L 02/10/18 08:00 02/10/18 08:28 02/10/18 09:01 Temperature 97.7 F Pulse Rate 105 H 73 Respiratory Rate 18 20 Blood Pressure 159/86 H Pulse Oximetry 95 93 L 96 02/10/18 12:00 Temperature 97.9 F Pulse Rate 78 Respiratory Rate 17 Blood Pressure 141/85 H Pulse Oximetry 91 L Intake & Output 02/09/18 02/10/18 02/10/18 18:59 06:59 18:59 Intake Total 900 / 900 780 / 780 250 / 250 Balance 900 / 900 780 / 780 250 / 250 Weight 85 kg Intake: IV 400 / 400 200 / 200 250 / 250 Levaquin 750 mg Premix Inj 150 300 / 300 150 / 150 ML @ 100 mls/hr IV.SIG Q24H INES Rx#:[id number] Tazicef Inj 2,000 MG In NS Inj 100 / 100 200 / 200 100 / 100 100 ML @ 200 mls/hr IV.SIG Q8H INES Rx#:[id number] Oral 500 / 500 580 / 580 Other: # Voids 3 3 Date of Last Bowel Movement 02/06/18 02/06/18 # Bowel Movements 0 Narrative: Very mild wheezing today, with good aeration bilaterally, unlabored breathing Heart sounds regular rate and rhythm, no murmurs Abdomen soft, nontender, nondistended Awake alert, no acute distress Results - Labs CBC & Chem 7: 02/09/18 05:09 12/23/18 16:05 Microbiology 02/07/18 16:21 Blood - Peripheral Aerobic Blood Culture - Preliminary No growth in 3 days 02/07/18 16:21 Blood - Peripheral Anaerobic Blood Culture - Preliminary No growth in 3 days 02/06/18 13:59 Blood - Peripheral Aerobic Blood Culture - Preliminary No growth in 4 days 02/06/18 13:59 Blood - Peripheral Anaerobic Blood Culture - Preliminary No growth in 4 days 02/06/18 14:14 Blood - Peripheral Aerobic Blood Culture - Preliminary No growth in 4 days 02/06/18 14:14 Blood - Peripheral Anaerobic Blood Culture - Preliminary No growth in 4 days 02/05/18 11:55 Blood - Peripheral Aerobic Blood Culture - Final Acinetobacter lwoffii 02/05/18 11:55 Blood - Peripheral Anaerobic Blood Culture - Final No growth in 5 days 02/05/18 11:58 Blood - Peripheral Aerobic Blood Culture - Final Acinetobacter lwoffii 02/05/18 11:58 Blood - Peripheral Anaerobic Blood Culture - Final No growth in 5 days Assessment and Plan - Plan 47-year-old white female who was admitted sepsis with shortness of breath. Found to be bacteremic with Acinetobacter, possible notion that this may have been something to do with her residual chemotherapy port fragment left in her brachiocephalic vein. Repeat blood cultures have been negative, infectious disease has been following along. Asthma/COPD exacerbation -Improving, downsizing patient steroids Headache -Continue Fioricet as needed Bacteremia Pneumonia -concern that 6 cm central line fragment (removed 1.5 years ago) and her brachiocephalic vein may be the source of her infection -Interventional radiology has deemed removing the fragment to high risk from their standpoint -2D echo neg -Repeat chest x-ray today is clear -Acinetobacter in blood, with Repeat cultures negative times 4 days, On Fortaz and Levaquin per ID, due to the nature of this bacteria, the patient may need IV antibiotics Anxiety Vistaril, continue to de-escalate Ativan H/o colon cancer -History of resection of her large intestine -No current symptoms h/o liver lesion -She has a lesion on her liver chronically, was told that a biopsy was not indicated -Follow-up with primary doctors for guidance and outpatient monitoring DVT Prophylaxis Lovenox Discharge Planning: anticipate dc on 02/11 once cleared w/ ID. symptoms have resolved
[2018-02-10 17:16] LABS: Anion Gap 9 meq/L (5-15); Aspartate Aminotransferase 11 U/L (15-37); Blood Urea Nitrogen 16 mg/dL (7-18); Calcium 7.9 mg/dL (8.5-10.1); Chloride 103 meq/L (98-107); Glomerular Filtration Rate 74 mL/min (>89); Glucose,Random 134 mg/dL (74-106); Potassium 4.1 meq/L (3.5-5.1); Sodium 139 meq/L (136-145)
[2018-02-10 17:20] LABS: Alanine Aminotransferase 20 U/L (10-53); Alkaline Phosphatase 74 U/L (45-117); Total Protein 6.1 g/dL (6.4-8.2)
[2018-02-11] MEDS ORDERED: Sod Phosphate/Sod Biphosphate (Adult) Enema 133 ML Bottle RECTAL ONE (01:40)
[2018-02-11] MEDS: Ibuprofen 400 MG Tablet PO SCH ×2 (01:52→09:37)
[2018-02-11] MEDS ORDERED: Polyethylene Glycol 3350 17 GM Packet PO SCH (09:00)
[2018-02-11] MEDS: Butalbital/APAP/Caff 50/325/40 MG Tablet PO PRN (09:37)
[2018-02-11] MEDS: Pantoprazole Sodium 20 MG DR Tablet PO SCH (09:37)
[2018-02-11] MEDS: Lidocaine 5% Patch T-DERMAL SCH (09:43)
[2018-02-11] MEDS: MethylPREDNISolone Sod Succinate Inj 125 MG/2 ML Vial IV.PUSH SCH (09:45)
--- NOTE | 2018-02-11 11:43 | IR ---
EXAM DATE: 02/07/2018 3:43 PM EST AGE/SEX: 47 years / Female INDICATIONS: Patient has foreign body in chest from prior venous access line. HISTORY OF PRESENT ILLNESS: Patient with infection. Retained portion of a Port-A-Cath. Concern for a seeded foreign body. Request made for removal of the foreign body. MEDICAL/SURGICAL HISTORY: Asthma. Carcinoma, colon. Cholecystectomy. Reversal colectomy, port placement and removal [place] [facility] [place]. . ALLERGIES: NKA IMAGING STUDIES: CT of the thorax 02/05/2018. These images reveal a residual catheter from removal of a left subclavia n Port-A-Cath. The catheter is entirely within the chest lodged within the brachiocephalic and superi or vena cava. No component within the heart or lungs. ASSESSMENT: I discussed this case with the patient. The patient informs me this port was removed over one year ag o. She states the port was originally placed 14 years ago. I had a long discussion with the patient. Given the length of time this catheter has been in place and not utilized it will certainly be incorp orated into the wall of the SVC and brachiocephalic veins. Attempting to remove this catheter would b e met with a high risk for fragmentation of the catheter with resulting embolization to the lungs. I strongly suggest no intervention be taken. PLAN: No intervention performed as detailed above. TIME SPENT: 20 minutes Electronically signed by: Jimi Saini MD Board Certified Radiologist 02/11/2018 11:42 AM EST
[2018-02-11 13:03] VITALS: O2SAT 93
--- NOTE | 2018-02-11 14:23 | P.PNID ---
Subjective Remarks: chart was reviewed Patient is a 47-year-old female, admitted to the hospital for further evaluation of worsening shortness of breath and moist non-productive cough Underlying asthm+ positive infiltrates found to have Acinetobacter bacteremia 10 yrs ago had PORT that was removed 6 yrs ago and has retained piece of catheter She was evalueated by IR for removal but that procedure was deemed to be way too risky 2 D echo was negative Notes reviewed Temps ok Still with SOB, a little better Spoke with IR yesterday - very high risk to remove retained cath since it has been there >10 years (2003) repeat BC negative Antibiotics: Levaquin Fortaz Past Medical History: Asthma Colon cancer History of colostomy reversal Hx of colectomy, with colostomy, then reversal Cholecystectomy Port placement and removal Allergies/Adverse Reactions: Allergies No Known Allergies Allergy (Verified 02/05/18 11:24) Objective Vital Signs 02/10/18 16:00 02/10/18 19:30 02/10/18 19:31 Temperature 98.1 F Pulse Rate 93 H 81 Respiratory Rate 19 18 Blood Pressure 151/72 H Pulse Oximetry 92 L 96 02/10/18 20:00 02/10/18 23:29 02/11/18 07:00 Temperature 98.2 F 98.0 F Pulse Rate 93 H 71 47 L Respiratory Rate 18 18 16 Blood Pressure 124/84 119/72 Pulse Oximetry 97 96 02/11/18 08:00 02/11/18 09:46 02/11/18 12:00 Temperature 97.9 F 98.3 F Pulse Rate 77 77 Respiratory Rate 19 16 18 Blood Pressure 134/94 H 118/81 Pulse Oximetry 95 93 L Intake & Output 02/10/18 02/11/18 02/11/18 18:59 06:59 18:59 Intake Total 950 / 950 780 / 780 Balance 950 / 950 780 / 780 Weight 85 kg Intake: IV 250 / 250 200 / 200 Levaquin 750 mg Premix Inj 150 150 / 150 ML @ 100 mls/hr IV.SIG Q24H INES Rx#:[id number] Tazicef Inj 2,000 MG In NS Inj 100 / 100 200 / 200 100 ML @ 200 mls/hr IV.SIG Q8H INES Rx#:[id number] Oral 700 / 700 580 / 580 Other: # Voids 7 3 Date of Last Bowel Movement 02/06/18 02/11/18 # Bowel Movements 0 02/07/18 16:21 Blood - Peripheral Aerobic Blood Culture - Preliminary No growth in 4 days 02/07/18 16:21 Blood - Peripheral Anaerobic Blood Culture - Preliminary No growth in 4 days 02/06/18 13:59 Blood - Peripheral Aerobic Blood Culture - Final No growth in 5 days 02/06/18 13:59 Blood - Peripheral Anaerobic Blood Culture - Final No growth in 5 days 02/06/18 14:14 Blood - Peripheral Aerobic Blood Culture - Final No growth in 5 days 02/06/18 14:14 Blood - Peripheral Anaerobic Blood Culture - Final No growth in 5 days 02/05/18 11:55 Blood - Peripheral Aerobic Blood Culture - Final Acinetobacter lwoffii 02/05/18 11:55 Blood - Peripheral Anaerobic Blood Culture - Final No growth in 5 days 02/05/18 11:58 Blood - Peripheral Aerobic Blood Culture - Final Acinetobacter lwoffii 02/05/18 11:58 Blood - Peripheral Anaerobic Blood Culture - Final No growth in 5 days Lab - Chemistry Results 02/10/18 16:05 Sodium 139 Potassium 4.1 D Chloride 103 Carbon Dioxide 27.0 Anion Gap 9 BUN 16 Creatinine 0.83 Estimated GFR 74 L Random Glucose 134 H Calcium 7.9 L Total Bilirubin 0.4 AST 11 L ALT 20 Alkaline Phosphatase 74 Total Protein 6.1 L D Albumin 3.0 L Imaging: ITS Impressions Chest CT 02/05/18 12:35 CONCLUSION: 1. Scattered patchy infiltrates are noted bilaterally and are nonspecific but suggestive of infectious/inflammatory process. Most prominent areas of nodular patchiness is noted within the right upper lobe posteriorly measuring 17 mm. Peripheral nodular patchy infiltrates are also noted within the right lower lobe. 2. Mildly prominent precarinal mediastinal lymph node measuring 15 mm as well as an enlarged subcarinal mediastinal lymph node measuring 2.3 cm. These are nonspecific. 3. Scattered underlying mild bullous emphysematous changes are noted bilaterally. 4. Mild hepatosplenomegaly. 5. Mild degenerative changes throughout the thoracic spine. WBC Scan Nuclear Medicine 02/08/18 00:00 CONCLUSION: Negative white blood cell scan. Chest X-Ray 02/09/18 00:00 CONCLUSION: No acute cardiac pulmonary process. Foreign body seen over the superior mediastinum. Physical Exam: GENERAL: awake and alert, not in distress SKIN: Cool and dry. No generalized rash HEAD: Atraumatic. Normocephalic. No temporal wasting, or tenderness. EYES: [place] conjunctiva. No petechia or hemorrhage. No scleral icterus. No injection or drainage. EARS, NOSE AND THROAT: Nose without bleeding or purulent nasal discharge. No sinus tenderness. Mucous membranes pink and moist. No oral lesions noted. No exudate. No oral thrush. NECK: Trachea midline. Supple and not tender, no meningeal signs. No nuchal rigidity CARDIOVASCULAR: Regular rate and rhythm. No murmurs, rubs or gallops heard RESPIRATORY: Poor air movement, still with tended. Bowel sounds present and normoactive. No guarding. No rebound. No organomegaly. EXTREMITIES: No clubbing, cyanosis, or edema. No joint effusion, has good ROM. No calf tenderness. NEUROLOGICAL: Grossly non-focal PSYCHIATRIC: Normal affect, calm and cooperative. LINE: No evidence of infection Assessment and Plan - Plan Impression Acinetobacter bacteremia, likely 2/2 PNA - has retained cath, ?a concern, it has been there >10 years - foreing body not amendable for removal 2/2 high risk WBC * negative Retained catheter from her port removed July 2016 - port placed >10 years ago - ?seeding Hx colon CA, S/P surgery and chemoRx Recommendation cont fortaz from 2 weeks from 1st negative BC (02/06) or PO Levaquine 750 daliy test of cure BC 2 weeks after abx are completed In case of recurrent bacteremia the diagnosis of intravascular infection will be essentiall confirmed and the pt will bneed to be referred to CT surgeon to be evaluated for removal of the retained catheter pt can be discharged from ID standpoint
--- NOTE | 2018-02-11 14:58 | P.DS ---
Date of admission: 02/05/18 15:15 Primary care physician: No Primary Care Physician Brief History from admission: 47-year-old female with a history of asthma, COPD, colon cancer with surgical resection of large intestine presents to the ER following 1 week of failed outpatient therapy for eczema exacerbation. She was seen 1 week ago and [facility] and given a Z-Huseyin with steroids. She went home but failed to improve and over the last 2 days has become gradually worse with her shortness of breath, wheezing, dyspnea on exertion. She had fevers approximately 5 days ago but has not had fever since. She denies any nausea vomiting or diarrhea. She denies any dysuria or gynecological symptoms. She denies any chest pain, but does complain of pleuritic pain pain in her chest wall from labor of breathing so many days. Patient update on day of discharge: Patient says that she feels short of breath with a partial chest tightness which she is attributing to her anxiety which she is tripping to steroids and not being able to leave the hospital as of yet. Wants to leave as soon as possible. She has walked around the floor multiple times with no dyspnea. DS: Medications - Discharge Medications Prescriptions: budesonide-formoterol [Symbicort] 2 puff INHALATION BID #1 inh hydroxyzine HCl 50 mg PO Q8H PRN #60 tab PRN Reason: Anxiety levofloxacin 750 mg PO DAILY #9 tab prednisone See Label Instructions .ROUTE .COMPLEX #30 tab DS: Summary Hospital Course: Patient was admitted, started on steroids and nebulizer treatments and antibiotics. Infectious disease have been consulted for Acinetobacter bacteremia. Patient incidentally was found to have a possible fragment of a catheter/central line/port that she is to have her chemotherapy over a year ago. I are deemed too high risk to have the fragment removed. Repeat blood cultures were negative so the idea of surgical intervention to remove the fragment. - Time Spent with Patient Total time spent providing and/or coordinating discharge services: Less than 30 minutes - Quality: VTE Deep Vein Thrombosis/Pulmonary Embolism Present on Admission: No Exam Vital signs: Vital Signs 02/10/18 16:00 02/10/18 19:30 02/10/18 19:31 Temperature 98.1 F Pulse Rate 93 H 81 Respiratory Rate 19 18 Blood Pressure 151/72 H Pulse Oximetry 92 L 96 02/10/18 20:00 02/10/18 23:29 12/24/18 07:00 Temperature 98.2 F 98.0 F Pulse Rate 93 H 71 47 L Respiratory Rate 18 18 16 Blood Pressure 124/84 119/72 Pulse Oximetry 97 96 02/11/18 08:00 02/11/18 09:46 02/11/18 12:00 Temperature 97.9 F 98.3 F Pulse Rate 77 77 Respiratory Rate 19 16 18 Blood Pressure 134/94 H 118/81 Pulse Oximetry 95 93 L Intake & Output 02/10/18 02/11/18 02/11/18 18:59 06:59 18:59 Intake Total 950 / 950 780 / 780 Balance 950 / 950 780 / 780 Weight 85 kg Intake: IV 250 / 250 200 / 200 Levaquin 750 mg Premix Inj 150 150 / 150 ML @ 100 mls/hr IV.SIG Q24H INES Rx#:[id number] Tazicef Inj 2,000 MG In NS Inj 100 / 100 200 / 200 100 ML @ 200 mls/hr IV.SIG Q8H INES Rx#:[id number] Oral 700 / 700 580 / 580 Other: # Voids 7 3 Date of Last Bowel Movement 02/06/18 02/11/18 # Bowel Movements 0 Narrative: Patient appears anxious, has no conversive dyspnea Very faint wheezing heard bilaterally with good aeration and breath sounds otherwise Awake and alert No abdominal or supraclavicular retractions noted Heart sounds regular rate and rhythm Results Procedures completed during hospitalization: none Labs on day of discharge: Labs from last 24 hours 02/10/18 16:05 Sodium 139 Potassium 4.1 D Chloride 103 Carbon Dioxide 27.0 Anion Gap 9 BUN 16 Creatinine 0.83 Estimated GFR 74 L Random Glucose 134 H Calcium 7.9 L Total Bilirubin 0.4 AST 11 L ALT 20 Alkaline Phosphatase 74 Total Protein 6.1 L D Albumin 3.0 L Preliminary micro results at discharge 02/07/18 16:21 Aerobic Blood Culture - Preliminary Blood - Peripheral No growth in 4 days Anaerobic Blood Culture - Preliminary No growth in 4 days - Impressions ITS Impressions Chest CT 02/05/18 12:35 CONCLUSION: 1. Scattered patchy infiltrates are noted bilaterally and are nonspecific but suggestive of infectious/inflammatory process. Most prominent areas of nodular patchiness is noted within the right upper lobe posteriorly measuring 17 mm. Peripheral nodular patchy infiltrates are also noted within the right lower lobe. 2. Mildly prominent precarinal mediastinal lymph node measuring 15 mm as well as an enlarged subcarinal mediastinal lymph node measuring 2.3 cm. These are nonspecific. 3. Scattered underlying mild bullous emphysematous changes are noted bilaterally. 4. Mild hepatosplenomegaly. 5. Mild degenerative changes throughout the thoracic spine. WBC Scan Nuclear Medicine 02/08/18 00:00 CONCLUSION: Negative white blood cell scan. Chest X-Ray 02/09/18 00:00 CONCLUSION: No acute cardiac pulmonary process. Foreign body seen over the superior mediastinum. Discharge Plan - Discharge Disposition Patient Disposition: Discharge Home - Discharge Condition Condition: Stable - Discharge Order Discharge Orders: Discharge Order (Routine); Ordered 02/11/18 Ordered By: Franck Phelps - Discharge Details Discharge Comment: DC once cleared and abx selected by ID - Physicians Team Primary Care Provider: Primary Care Jeane Berry Attending Provider: Franck Phelps Other Providers: Radha Simons MD
[2018-02-11] MEDS: Enoxaparin Inj 40 MG/0.4 ML Syringe SQ SCH (16:00)
[2018-02-11 16:38] VITALS: BP 130/71; PULSE 86; RESP 18; TEMP 98
== END 2018-02-11 17:17 | disposition home or self-care (01) ==
LOC: NEPE 10:54 → NEDA 15:15 → N07 16:23
PROVIDERS: ADMIT Hospitalist; ATTEND Hospitalist